=== PATIENT | female | born 1945 | race Caucasian/White ===

== ENCOUNTER 2019-03-18 00:13 | Inpatient (IN) | payer BC, OTHER ==
[2019-03-18] MEDS ORDERED: NA CHLORIDE 0.9% 2,000 ML ONE (00:57)
[2019-03-18 01:04] LABS: Absolute Lymphocytes (CBC) 1.8 K/uL (0.7-4.9); Basophils % 0.4 % (0-1.3); Hematocrit 41.8 % (36.0-45.0); Lymphocytes % 22.9 % (15.3-44.8); RBC Red Blood Cell Count 4.56 M/uL (3.86-4.86)
[2019-03-18] MEDS ORDERED: IPRATROPIUM BROM 0.5MG/2.5ML ONE (01:06)
[2019-03-18] MEDS ORDERED: ALBUTEROL 2.5 MG/3 ML NEB SOL ONE (01:07)
[2019-03-18 01:08] LABS: Protime INR 1.05
[2019-03-18 01:19] LABS: Arterial Blood Carboxyhemoglob 0.5 % (0-1.5); Blood Gas Oxyhemoglobin 97.3 % (94-97); Blood O2 Saturation 98.8 % (92-98.5)
[2019-03-18 01:24] LABS: ALT/SGPT 21 U/L (12-78); AST/SGOT 22 U/L (15-37); Alkaline Phosphatase 74 U/L (45-117); Amylase Level 46 U/L (25-115); BUN Blood Urea Nitrogen 17 mg/dL (7-18); Bicarbonate 25 mmol/L (21-32); Bilirubin Direct < 0.1 mg/dL (0-0.2); Bilirubin Total 0.3 mg/dL (0.2-1.0); CKMB Creatine Kinase MB 1.3 ng/mL (0.3-3.6); Creatine Phosphokinase 102 U/L (26-192); Glucose Level 130 mg/dL (74-106); Lipase 148 U/L (73-393); Potassium 3.6 mmol/L (3.5-5.1); Protein, Total 6.8 g/dL (6.4-8.2); Sodium Level 140 mmol/L (136-145); Troponin (Emerg Dept Use Only) < 0.02 ng/mL (0.0-0.045)
[2019-03-18] MEDS ORDERED: OSELTAMIVIR 75 MG CAP ONE (01:32)
[2019-03-18] MEDS ORDERED: PIPER/TAZO/NS 3.375gm 3.375 GM/100 ML BAG ONE (01:33)
--- NOTE | 2019-03-18 03:48 | ER ---
Nurse's Notes [facility] Name: Sherman Cook Age: 73 yrs Sex: Female : 1945 Arrival Date: 03/18/2019 Time: 00:16 Bed 4 Private MD: Aquiles Gracia V Diagnosis: Acute dyspnea. Hypotension. COPD exacerbation. Influenza A. Strep pharyngitis Presentation: 03/18 00:25 Presenting complaint: Patient states: 2 days ago feels getting sick,, cough and rr5 colds, Fever, and dizziness. 00:25 Transition of care: patient was not received from another setting of care. Onset of rr5 symptoms was March 16, 2019. Risk Assessment: Do you want to hurt yourself or someone else? Patient reports no desire to harm self or others. Initial Sepsis Screen: Does the patient meet any 2 criteria? RR > 20 per min. HR > 90 bpm. Yes Does the patient have a suspected source of infection? Yes: Productive cough/pneumonia. Care prior to arrival: None. Medication(s) given: inhaler. 00:25 Method Of Arrival: Wheelchair rr5 00:25 Acuity: TAYE 3 rr5 Triage Assessment: 00:25 Respiratory: the patient has mild shortness of breath. rr5 Historical: - Allergies: 00:44 PENICILLINS; rr5 00:44 Codeine; rr5 - Home Meds: 00:25 Unable to obtain [Active]; rr5 - PMHx: 00:25 COPD; Bronchitis; Arthritis; rr5 - PSHx: 00:25 Unable to obtain; rr5 - Immunization history:: Adult Immunizations up to date. - Coronavirus screen:: The patient has NOT traveled to [place], [place], or [place] in the past 14 days. - Social history:: Smoking status: Patient denies any tobacco usage or history of. Patient/guardian denies using alcohol, street drugs. - Ebola Screening: : Patient negative for fever greater than or equal to 101.5 degrees Fahrenheit, and additional compatible Ebola Virus Disease symptoms Patient denies exposure to infectious person Patient denies travel to an Ebola-affected area in the 21 days before illness onset. Screenin:32 Abuse screen: Denies threats or abuse. Denies injuries from another. Nutritional rr5 screening: No deficits noted. Tuberculosis screening: No symptoms or risk factors identified. Fall Risk IV access (20 points). Gait- Weak (10 pts.). Mental Status- Oriented to own ability (0 pts). Assessment: 00:25 General: Appears uncomfortable, ill, Behavior is calm, cooperative, appropriate for rr5 age, Reports fever for feeling ill for 1-2 days. Pain: Complains of pain in back and chest Pain does not radiate. Pain currently is 5 out of 10 on a pain scale. Quality of pain is described as aching, Pain began gradually, Is intermittent. Neuro: Level of Consciousness is awake, alert, obeys commands, Oriented to person, place, time, situation, Appropriate for age. Cardiovascular: Capillary refill < 3 seconds Patient's skin is warm and dry. Rhythm is sinus tachycardia. Respiratory: Reports shortness of breath cough that is colds Airway is patent Respiratory effort is labored, Respiratory pattern is symmetrical, tachypnea Breath sounds are clear. GI: Patient currently denies diarrhea, nausea, vomiting. : No signs and/or symptoms were reported regarding the genitourinary system. EENT: No signs and/or symptoms were reported regarding the EENT system. Derm: Skin is intact, is healthy with good turgor, Skin temperature is warm. Musculoskeletal: Circulation, motion, and sensation intact. Capillary refill < 3 seconds. 01:30 Reassessment: Patient appears in no apparent distress at this time. Patient is alert, rr5 oriented x 3, equal unlabored respirations, skin warm/dry/pink. lactate of 1.9,positive flu A and strep, ED provider aware with order made to change the fluid rate to 125ml/hr and antibiotic. Patient states feeling better. Patient states symptoms have improved. 02:30 Reassessment: Patient appears in no apparent distress at this time. Patient is alert, rr5 oriented x 3, equal unlabored respirations, skin warm/dry/pink. awaiting for CT chest angio Patient states feeling better. Patient states symptoms have improved. 03:30 Reassessment: Patient appears in no apparent distress at this time. Patient is alert, rr5 oriented x 3, equal unlabored respirations, skin warm/dry/pink. awaiting for result of CT angio, no complaints made. 04:00 Reassessment: Patient appears in no apparent distress at this time. Patient is alert, rr5 oriented x 3, equal unlabored respirations, skin warm/dry/pink. resting eyes closed breathing spontaneously with oxygen at 1 liter via nasal cannula. 04:50 Reassessment: Patient appears in no apparent distress at this time. Patient is alert, rr5 oriented x 3, equal unlabored respirations, skin warm/dry/pink. for transfer to room 417, vitally stable, denies any or SOB Patient states symptoms have improved. Vital Signs: 00:25 BP 97 / 49; Pulse 122; Resp 31; Pulse Ox 98% ; Weight 68.04 kg; Height 5 ft. 2 in. rr5 (157.48 cm); Pain 5/10; 00:27 Temp 99.3; Pulse Ox 94% on 2 lpm NC; rr5 00:45 BP 114 / 79; Pulse 115; Resp 24; Pulse Ox 99% on 2 lpm NC; rr5 01:44 BP 119 / 60; Pulse 115; Resp 22; Pulse Ox 98% on 1 lpm NC; rr5 02:28 BP 110 / 50; Pulse 110; Resp 23; Pulse Ox 97% on 1 lpm NC; rr5 03:17 BP 115 / 43; Pulse 109; Resp 21; Temp 99; Pulse Ox 99% on 1 lpm NC; Pain 5/10; rr5 04:10 BP 107 / 47; Pulse 96; Resp 22; Pulse Ox 95% on 1 lpm NC; rr5 04:56 BP 111 / 52; Pulse 105; Resp 20; Temp 98.4; Pulse Ox 95% on 1 lpm NC; rr5 00:25 Body Mass Index 27.44 (68.04 kg, 157.48 cm) rr5 00:27 hooked to oxygen rr5 Anastacia Coma Score: 00:25 Eye Response: spontaneous(4). Verbal Response: oriented(5). Motor Response: obeys rr5 commands(6). Total: 15. ED Course: 00:16 Patient arrived in ED. es 00:17 Aquiles Gracia MD is Private Physician. es 00:17 Robert Bateman MD is Attending Physician. pkl 00:27 Nghia Murillo, SUSANA is Primary Nurse. rr5 00:30 Triage completed. rr5 00:31 Arm band placed on. rr5 00:31 Patient has correct armband on for positive identification. Placed in gown. Bed in low rr5 position. Call light in reach. Side rails up X2. patient monitor on. Pulse ox on. NIBP on. 01:00 Inserted saline lock: 20 gauge in left antecubital area, using aseptic technique. Blood oe collected. 01:16 Chest Single View XRAY In Process Unspecified. EDMS 03:20 CT Chest For PE Angio In Process Unspecified. EDMS 03:45 Aquiles Gracia MD is Hospitalizing Provider. pkl 04:45 No provider procedures requiring assistance completed. Patient admitted, IV remains in rr5 place. intact, No redness/swelling at site. Administered Medications: 01:03 Drug: NS 0.9% (30 ml/kg) 30 ml/kg Route: IV; Rate: bolus; Site: left antecubital; rr5 01:57 Follow up: Rate change 125 ml/hr; ordered to regulate to 125 ml/hr rr5 05:00 Follow up: Response: No adverse reaction; IV Status: Infusion continued upon admission; rr5 IV Intake: 1000ml ; rate of 125 ml/hr 01:08 Drug: Albuterol - atroVENT (3:1) (2.5 mg - 0.5 mg) 3 ml Route: Nebulizer; rr5 02:10 Follow up: Response: No adverse reaction; Marked relief of symptoms rr5 01:38 Dru.375 grams of (Zosyn 3.375 grams, NS 0.9% 100 ml) Route: IVPB; Infused Over: 60 rr5 mins; Site: left antecubital; 02:35 Follow up: Response: No adverse reaction; IV Status: Completed infusion; IV Intake: rr5 100ml 01:38 Drug: Tamiflu 75 mg Route: PO; rr5 02:45 Follow up: Response: No adverse reaction rr5 Intake: 02:35 IV: 100ml; Total: 100ml. rr5 05:00 IV: 1000ml; Total: 1100ml. rr5 Outcome: 03:47 Decision to Hospitalize by Provider. pkl 04:45 Admitted to Tele accompanied by tech, via stretcher, room 417, with oxygen, with chart, rr5 Report called to ирина 04:45 Condition: stable 04:45 Instructed on the need for admit. 05:16 Patient left the ED. ea Signatures: Dispatcher [employer] Robert Loera MD MD pkFatuma Albarado Orlando oe Antunez, Elena, RN RN Nghia Hooker RN RN rr5 Corrections: (The following items were deleted from the chart) 00:44 00:25 Allergies: No Known Allergies; rr5 rr5 00:47 00:25 Initial Sepsis Screen: Does the patient meet any 2 criteria? RR > 20 per min. HR rr5 > 90 bpm. Yes Does the patient have a suspected source of infection? No. Patient's initial sepsis screen is negative. rr5 03:18 03:17 BP 115 / 43; Pulse 109bpm; Resp 21bpm; Pulse Ox 99%; Temp 99F; Pain 5/10; rr5 rr5
--- NOTE | 2019-03-18 03:48 | EDPHYS ---
Physician Documentation [facility] Name: Sherman Cook Age: 73 yrs Sex: Female : 1945 Arrival Date: 03/18/2019 Time: 00:16 Bed 4 Private MD: Aquiles Gracia V ED Physician Robert Bateman HPI: 03/18 00:46 This 73 yrs old Female presents to ER via Wheelchair with complaints of pkl Breathing Difficulty. 00:46 The patient has shortness of breath at rest. Onset: The symptoms/episode began/occurred pkl 2 day(s) ago. Associated signs and symptoms: Pertinent positives: chest pain, productive cough, dizziness, fever. Historical: - Allergies: 00:44 PENICILLINS; rr5 00:44 Codeine; rr5 - Home Meds: 00:25 Unable to obtain [Active]; rr5 - PMHx: 00:25 COPD; Bronchitis; Arthritis; rr5 - PSHx: 00:25 Unable to obtain; rr5 - Immunization history:: Adult Immunizations up to date. - Coronavirus screen:: The patient has NOT traveled to [place], [place], or [place] in the past 14 days. - Social history:: Smoking status: Patient denies any tobacco usage or history of. Patient/guardian denies using alcohol, street drugs. - Ebola Screening: : Patient negative for fever greater than or equal to 101.5 degrees Fahrenheit, and additional compatible Ebola Virus Disease symptoms Patient denies exposure to infectious person Patient denies travel to an Ebola-affected area in the 21 days before illness onset. ROS: 00:46 Eyes: Negative for injury, pain, redness, and discharge, ENT: Negative for injury, pkl pain, and discharge, Neck: Negative for injury, pain, and swelling. 00:46 Cardiovascular: Positive for chest pain, with cough. 00:46 Respiratory: Positive for cough, with yellow sputum, shortness of breath. 00:46 Abdomen/GI: Negative for abdominal pain, nausea, vomiting, and diarrhea. 00:46 Back: Negative for acute changes. 00:46 : Negative for urinary symptoms. 00:46 MS/extremity: Negative for acute changes. 00:46 Skin: Negative for rash. 00:46 Neuro: Negative for altered mental status. Exam: 00:46 Head/Face: Normocephalic, atraumatic. Eyes: Pupils equal round and reactive to light, pkl extra-ocular motions intact. Lids and lashes normal. Conjunctiva and sclera are non-icteric and not injected. Cornea within normal limits. Periorbital areas with no swelling, redness, or edema. ENT: Nares patent. No nasal discharge, no septal abnormalities noted. Tympanic membranes are normal and external auditory canals are clear. Oropharynx with no redness, swelling, or masses, exudates, or evidence of obstruction, uvula midline. Mucous membranes moist. Neck: Trachea midline, no thyromegaly or masses palpated, and no cervical lymphadenopathy. Supple, full range of motion without nuchal rigidity, or vertebral point tenderness. No Meningismus. Chest/axilla: Normal chest wall appearance and motion. Nontender with no deformity. No lesions are appreciated. 00:46 Cardiovascular: Rate: tachycardic, actual rate is 115 bpm, Rhythm: regular. 00:46 ECG was reviewed by the Attending Physician. 00:46 Respiratory: mild respiratory distress is noted, Respirations: labored breathing, that is mild, Breath sounds: rales, that are mild, are scattered. 00:46 Abdomen/GI: Bowel sounds: normal, Palpation: abdomen is soft and non-tender, in all quadrants. 00:46 Back: Exam negative for acute changes. 00:46 : Exam negative for acute changes. 00:46 Musculoskeletal/extremity: Exam is negative for acute changes. 00:46 Skin: Exam negative for rash. 00:46 Neuro: Orientation: is normal, Mentation: is normal, Cranial nerves: grossly normal, Motor: is normal. Vital Signs: 00:25 BP 97 / 49; Pulse 122; Resp 31; Pulse Ox 98% ; Weight 68.04 kg; Height 5 ft. 2 in. rr5 (157.48 cm); Pain 5/10; 00:27 Temp 99.3; Pulse Ox 94% on 2 lpm NC; rr5 00:45 BP 114 / 79; Pulse 115; Resp 24; Pulse Ox 99% on 2 lpm NC; rr5 01:44 BP 119 / 60; Pulse 115; Resp 22; Pulse Ox 98% on 1 lpm NC; rr5 02:28 BP 110 / 50; Pulse 110; Resp 23; Pulse Ox 97% on 1 lpm NC; rr5 03:17 BP 115 / 43; Pulse 109; Resp 21; Temp 99; Pulse Ox 99% on 1 lpm NC; Pain 5/10; rr5 04:10 BP 107 / 47; Pulse 96; Resp 22; Pulse Ox 95% on 1 lpm NC; rr5 04:56 BP 111 / 52; Pulse 105; Resp 20; Temp 98.4; Pulse Ox 95% on 1 lpm NC; rr5 00:25 Body Mass Index 27.44 (68.04 kg, 157.48 cm) rr5 00:27 hooked to oxygen rr5 Anastacia Coma Score: 00:25 Eye Response: spontaneous(4). Verbal Response: oriented(5). Motor Response: obeys rr5 commands(6). Total: 15. MDM: 00:17 Patient medically screened. pkl 01:41 Data reviewed: vital signs, nurses notes, lab test result(s), EKG, radiologic studies, pkl CT scan, plain films. ED course: D-Dimer ( 1294 ) CT PE Chest Angio ordered. 03/18 00:46 Order name: Amylase, Serum; Complete Time: pkl 03/18 00:46 Order name: Basic Metabolic Panel; Complete Time: pkl 03/18 00:46 Order name: Blood Culture Adult (2) pkl 03/18 00:46 Order name: CBC with Diff; Complete Time: pkl 03/18 00:46 Order name: Ckmb; Complete Time: : pkl 03/18 00:46 Order name: CPK; Complete Time: : pkl 03/18 00:46 Order name: Lactate; Complete Time: pkl 03/18 00:46 Order name: LFT's; Complete Time: : pkl 03/18 00:46 Order name: Lipase; Complete Time: : pkl 03/18 00:46 Order name: Procalcitonin; Complete Time: 01:38 pkl 03/18 00:46 Order name: Protime (+inr); Complete Time: : pkl 03/18 00:46 Order name: Ptt, Activated; Complete Time: pkl 03/18 00:46 Order name: Troponin (emerg Dept Use Only); Complete Time: : pkl 03/18 00:46 Order name: Urine Microscopic Only pkl 03/18 00:46 Order name: Chest Single View XRAY pkl 03/18 00:46 Order name: Accucheck; Complete Time: 01:10 pkl 03/18 00:46 Order name: Cardiac monitoring; Complete Time: 01:10 pkl 03/18 00:46 Order name: EKG - Nurse/Tech; Complete Time: 01:10 pkl 03/18 00:46 Order name: IV Saline Lock - Large Bore; Complete Time: 01:13 pkl 03/18 00:46 Order name: Labs collected and sent; Complete Time: 01:13 pkl 03/18 00:46 Order name: ABG; Complete Time: 01:26 pkl 03/18 00:51 Order name: Flu; Complete Time: :26 pkl 03/18 00:51 Order name: Strep; Complete Time: 01:26 pkl 03/18 01:04 Order name: Glucose, Ancillary Testing; Complete Time: 01:06 EDMS 03/18 01:17 Order name: D-Dimer; Complete Time: 01:41 pkl 03/18 01:40 Order name: CT Chest For PE Angio pkl 03/18 00:46 Order name: O2 Per Protocol; Complete Time: 01:13 pkl 03/18 00:46 Order name: O2 Sat Monitoring; Complete Time: 01:13 pkl Administered Medications: 01:03 Drug: NS 0.9% (30 ml/kg) 30 ml/kg Route: IV; Rate: bolus; Site: left antecubital; rr5 01:57 Follow up: Rate change 125 ml/hr; ordered to regulate to 125 ml/hr rr5 05:00 Follow up: Response: No adverse reaction; IV Status: Infusion continued upon admission; rr5 IV Intake: 1000ml ; rate of 125 ml/hr 01:08 Drug: Albuterol - atroVENT (3:1) (2.5 mg - 0.5 mg) 3 ml Route: Nebulizer; rr5 02:10 Follow up: Response: No adverse reaction; Marked relief of symptoms rr5 01:38 Dru.375 grams of (Zosyn 3.375 grams, NS 0.9% 100 ml) Route: IVPB; Infused Over: 60 rr5 mins; Site: left antecubital; 02:35 Follow up: Response: No adverse reaction; IV Status: Completed infusion; IV Intake: rr5 100ml 01:38 Drug: Tamiflu 75 mg Route: PO; rr5 02:45 Follow up: Response: No adverse reaction rr5 Disposition: 03/18/19 03:47 Hospitalization ordered by Aquiles Gracia for Inpatient Admission. Preliminary diagnosis is Acute dyspnea. Hypotension. COPD exacerbation. Influenza A. Strep pharyngitis. - Bed requested for Telemetry/MedSurg (Inpatient). - Status is Inpatient Admission. ea - Condition is Stable. - Problem is new. - Symptoms are unchanged. UTI on Admission? No Signatures: Dispatcher [employer] EDMS Anitra Zaragoza RN RN mw Lam, Pin, MD MD pkl Miladis Leach RN RN ea Roque, Raymond RN RN rr5 Corrections: (The following items were deleted from the chart) 00:44 00:25 Allergies: No Known Allergies; rr5 rr5 04:15 03:47 Hospitalization Ordered by Aquiles Gracia MD for Inpatient Admission. Preliminary diagnosis is Acute dyspnea. Hypotension. COPD exacerbation. Influenza A. Strep pharyngitis. Bed requested for Telemetry/MedSurg (Inpatient). Status is Inpatient Admission. Condition is Stable. Problem is new. Symptoms are unchanged. UTI on Admission? No. pkl 05:16 04:15 03/18/2019 03:47 Hospitalization Ordered by Aquiles Gracia MD for Inpatient ea Admission. Preliminary diagnosis is Acute dyspnea. Hypotension. COPD exacerbation. Influenza A. Strep pharyngitis. Bed requested for Telemetry/MedSurg (Inpatient). Status is Inpatient Admission. Condition is Stable. Problem is new. Symptoms are unchanged. UTI on Admission? No. mw
[2019-03-18] MEDS ORDERED: IPRATROPIUM BROM 0.5MG/2.5ML NEB PRN (03:53)
[2019-03-18] MEDS ORDERED: ALBUTEROL 2.5 MG/3 ML NEB SOL NEB PRN (03:53)
[2019-03-18 06:47] VITALS: BMI 27.7
[2019-03-18] MEDS: CEFTRIAXONE/SWI 1gm 1 GM/10 ML SYR IV SCH ×2 (08:08→21:22)
[2019-03-18] MEDS: METHYLPREDNISOLONE 40 MG INJ IV SCH ×2 (08:09→16:34)
[2019-03-18] MEDS: ASPIRIN EC 81 MG TAB PO SCH (08:09)
--- NOTE | 2019-03-18 08:11 | RAD REPORT ---
EXAM DESCRIPTION: RAD - Chest Single View - 03/18/2019 1:11 am CLINICAL HISTORY: Cough;Fever COMPARISON: Chest Pa And Lat (2 Views) dated 09/07/2015; CHEST PA AND LAT 2 VIEW dated 03/19/2012 TECHNIQUE: AP portable chest image was obtained 03/18/2019 1:11 am . FINDINGS: No focal lung parenchymal process. No failure or volume overload. Interstitial pattern mat ches comparison. Focal density medial right lung base is probably pericardial fat. This has unchanged from 2012. Heart and vasculature are normal. No measurable pleural effusion and no pneumothorax. No acute bony abnormality seen. No acute aortic findings suspected. IMPRESSION: No acute cardiopulmonary process.
--- NOTE | 2019-03-18 08:46 | EKG ---
Test Date: 2019-03-18 Test Time: 00:40:28 Naval Architect Specialist: RR MEASUREMENT RESULTS: Intervals: Rate: 115 CO: 122 QRSD: 70 QT: 294 QTc: 406 [place]: P: 69 CO: 122 QRS: 52 T: 212 INTERPRETIVE STATEMENTS: Sinus tachycardia ST & T wave abnormality, consider inferolateral ischemia Abnormal ECG Compared to ECG 09/07/2015 13:48:03 Sinus rhythm no longer present ST (T wave) deviation still present Possible ischemia still present Electronically Signed On 03-18-19 08:45:28 SHIPPING HELPER by Brock Ortiz
[2019-03-18] MEDS ORDERED: OSELTAMIVIR 75 MG CAP PO SCH (09:00)
--- NOTE | 2019-03-18 10:57 | RAD REPORT ---
EXAM DESCRIPTION: CT - Chest For Pe Angio - 03/18/2019 8:40 am CLINICAL HISTORY: The patient is 73 years old and is Female; Cough;Fever;Dyspnea TECHNIQUE: Axial computed tomographic angiography images of the chest with intravenous contrast. S agittal and coronal reformatted images were created and reviewed. This CT exam was performed using one or more of the following dose reduction techniques: automated exposure control, adjustment of t he mA and/or kV according to patient size, and/or use of iterative reconstruction technique. MIP reconstructed images were created and reviewed. COMPARISON: No relevant prior studies available. FINDINGS: ARTIFACTS: The exam is suboptimal secondary to motion artifact. PULMONARY ARTERIES: The timing of contrast is suboptimal to evaluate for pulmonary thromboemboli sm. AORTA: No acute findings. No thoracic aortic aneurysm. LUNGS: Minimal bilateral centrilobular emphysematous change of the lungs is present. A 0.[address] eural-based right upper lobe pulmonary nodule is present. PLEURAL SPACE: Unremarkable. No significant effusion. No pneumothorax. HEART: Unremarkable. No cardiomegaly. No significant pericardial effusion. No evidence of RV dysfunction. MEDIASTINUM: A small hiatal hernia is present. BONES/JOINTS: Minimal degenerative change of the bones is present. No acute fracture. No dis location. SOFT TISSUES: Unremarkable. LYMPH NODES: Unremarkable. No enlarged lymph nodes. IMPRESSION: 1. The timing of contrast is suboptimal to evaluate for pulmonary thromboembolism. 2. No lobar consolidation or effusion. 3. Right upper lobe pulmonary nodule. Recommend a non-contrast Chest CT at 6-12 months, then another non-contrast Chest CT at 18-24 months. These guidelines do not apply to immunocompromised patients and patients with cancer. Follow up in pa tients with significant comorbidities as clinically warranted. For lung cancer screening, adhere to L kwabena-RADS guidelines. Reference: Radiology. 2017; 284(1):228-43. Electronically signed by: Magalie Gamboa MD 03/18/2019 3:31 AM ICT HELP DESK TECHNICIAN Due to temporary technical issues with the PACS/Fluency reporting system, reports are being signed by the in house radiologist as a courtesy to ensure prompt reporting. The interpreting radiologist is f ully responsible for the content of the report.
[2019-03-18 16:20] LABS: Urine Bacteria <20 /HPF (<20); Urine Culture Reflex Order NOT NEEDED; Urine RBC <5 /HPF (NONE SEEN)
--- NOTE | 2019-03-18 18:10 | P.HP ---
Certification for Inpatient Patient admitted to: Inpatient With expected LOS: >2 Midnights Practitioner: I am a practitioner with admitting privileges, knowledge of patient current condition, hospital course, and medical plan of care. Services: Services provided to patient in accordance with Admission requirements found in Title 42 Section 412.3 of the Code of Federal Regulations Patient History Date of Service: 03/18/19 Reason for admission: DYSPNEA, COUGH, LOW BP. History of Present Illness: MS. ESTEVEZ HAS COPD AND COMES WITH FEVER, COUGH, SORE THROAT FOUND TO HAVE POSITIVE FLU AND POSITVE STREP THROAT. SHE HAD LOW BP ON ADMISSION DOWN TO 90 SYSTOLIC. SHE IS BETTER AFTER HYDRATION BOLUS IN ER. Allergies Penicillins Allergy (Mild, Verified 01/16/12 12:32) Rash codeine [Codeine] Adverse Reaction (Intermediate, Verified 01/16/12 12:32) vomitting Home Medications: Cyclosporine [Restasis] 1 each OP DAILY 09/07/15 Duloxetine HCl [Cymbalta] 60 mg PO DAILY 09/07/15 Leflunomide [Arava] 10 mg PO DAILY 09/07/15 Fluticasone/Umeclidin/Vilanter [Trelegy Ellipta 100-62.5-25] 1 puff IH DAILY 05/02 Ipratrop/Albuterol Inhaler [Combivent*] 2 puff IH BID PRN 03/18/19 - Past Medical/Surgical History Has patient received pneumonia vaccine in the past: Yes Diabetic: No -: PNEUMONIA -: BRONCHITIS -: COPD -: RA -: CATARACT SX BILATERAL EYES - Social History Smoking Status: Never smoker Alcohol use: No CD- Drugs: No Caffeine use: Yes Place of Residence: Home Review of Systems 10-point ROS is otherwise unremarkable General: Weakness, Malaise Respiratory: Cough Physical Examination - Vital Signs Temperature: 97.3 F Blood Pressure: 140/57 Pulse: 86 Respirations: 16 Pulse Ox (%): 97 - Physical Exam General: Alert, Moderate distress HEENT: Atraumatic, PERRLA, Mucous membr. moist/pink, EOMI, Sclerae nonicteric Neck: Supple, 2+ carotid pulse no bruit, No LAD, Without JVD or thyroid abnormality Respiratory: Diminished, Rhonchi/gurgles Cardiovascular: Regular rate/rhythm, Normal S1 S2 Gastrointestinal: Normal bowel sounds, No tenderness Musculoskeletal: No tenderness Integumentary: No rashes Neurological: Normal gait, Normal speech, Normal strength at 5/5 x4 extr, Normal tone, Normal affect Lymphatics: No axilla or inguinal lymphadenopathy - Studies Laboratory Data (last 24 hrs) 03/18/19 00:45: PT 12.4, INR 1.05, APTT 34.2 03/18/19 00:45: WBC 7.9, Hgb 13.8, Hct 41.8, Plt Count 223 03/18/19 00:45: Sodium 140, Potassium 3.6, BUN 17, Creatinine 1.10, Glucose 130 H, Total Bilirubin 0.3, AST 22, ALT 21, Alkaline Phosphatase 74, Amylase 46, Lipase 148 Microbiology Data (last 24 hrs): 03/18/19 01:00 Throat Group A Streptococcus Rapid Screen - Final 03/18/19 01:00 Nasopharnyx Influenza Type A Antigen Screen - Final 03/18/19 01:00 Nasopharnyx Influenza Type B Antigen Screen - Final Assessment and Plan - Problems (Diagnosis) (1) Decompensated chronic obstructive pulmonary disease with exacerbation Onset Date: 09/08/15 Current Visit: No Status: Acute Plan: IV STEROIDS, NEBS, ABX. SHOULD IMPROVE. SHE WILL BE ON TAMILFU DOSE ADJUSTED BY PHARMACIST AND ROCEPHIN IV. - Advance Directives Does patient have a Living Will: No Does patient have a Durable POA for Healthcare: No
[2019-03-18] MEDS ORDERED: PNEUMOCOCCAL VACCINE 0.5 ML IMVAC ONE (21:00)
[2019-03-18] MEDS ORDERED: INFLUENZA VACCINE (for 3y+) 0.5 ML DOSE IMVAC ONE (21:00)
[2019-03-18] MEDS ORDERED: OSELTAMIVIR PHOSPHATE 30 MG/5 ML SUSPENSION UD ONE (21:15)
[2019-03-18] MEDS: OSELTAMIVIR PHOSPHATE 30 MG/5 ML SUSPENSION UD PO SCH (21:22)
[2019-03-19] MEDS: METHYLPREDNISOLONE 40 MG INJ IV SCH ×3 (00:33→16:17)
[2019-03-19 05:59] LABS: Absolute Lymphocytes (CBC) 0.9 K/uL (0.7-4.9); RBC Red Blood Cell Count 3.98 M/uL (3.86-4.86)
[2019-03-19] MEDS: ASPIRIN EC 81 MG TAB PO SCH (08:30)
[2019-03-19] MEDS: OSELTAMIVIR PHOSPHATE 30 MG/5 ML SUSPENSION UD PO SCH ×2 (08:30→20:51)
[2019-03-19] MEDS: CEFTRIAXONE/SWI 1gm 1 GM/10 ML SYR IV SCH ×2 (08:30→20:51)
[2019-03-19] MEDS: DULOXETINE 30 MG CAP PO SCH (08:30)
[2019-03-19] MEDS: HOME MED 1 EA UNK (Fluticasone/Umeclidin/Vilanter [Trelegy Ellipta 100-62.5-25] 1 PUFF) IH SCH (08:31)
[2019-03-19] MEDS ORDERED: HOME MED 1 EA UNK (Cyclosporine [Restasis] 1 EACH) OP SCH (09:00)
[2019-03-19] MEDS ORDERED: HOME MED 1 EA UNK (Duloxetine Hcl [Cymbalta] 60 MG) PO SCH (09:00)
[2019-03-19] MEDS ORDERED: LEFLUNOMIDE 10 MG PO SCH (09:00)
[2019-03-19] MEDS ORDERED: IPRATROPIUM BROM 0.5MG/2.5ML NEB PRN (14:00)
[2019-03-19] MEDS ORDERED: ALBUTEROL 2.5 MG/3 ML NEB SOL NEB PRN (14:00)
--- NOTE | 2019-03-19 22:34 | PN ---
Subjective: Sherman is doing lot better. Breathing is improving. Denies chest pain, nausea, vomiting. Objective: Vital Signs: On physical examination, blood pressure 149/81, temperature 97.2. HEENT: No JVD. No carotid bruits. Heart: Regular. Chest: Actually has decreased breath sounds bilateral ly. Investigations: Patient has 2 blood cultures positive, but 1 is anaerobic, other 1 is aerobic gram-p ositive cocci. I suspect this could be contamination of the sample collection process, might be infl uenced by poor sample collection. We will follow up on this until final result is ready tomorrow. Assessment/plan: Chronic obstructive pulmonary disease exacerbation strep positive. Continue antibi otic Rocephin; probably Tamiflu, the dose adjusted by pharmacist, down to 30 mg twice a day, but now the creatinine is down to 0.88 and dose might be able to be improved back to normal level. Pharmacy is going to take care of this. MARQUES/ROGE Voice ID: [id number] Report ID: [id number]
[2019-03-20] MEDS: METHYLPREDNISOLONE 40 MG INJ IV SCH ×2 (00:09→08:43)
[2019-03-20] MEDS: CEFTRIAXONE/SWI 1gm 1 GM/10 ML SYR IV SCH (08:43)
[2019-03-20] MEDS: ASPIRIN EC 81 MG TAB PO SCH (08:44)
[2019-03-20] MEDS: DULOXETINE 30 MG CAP PO SCH (08:44)
[2019-03-20] MEDS: HOME MED 1 EA UNK (Fluticasone/Umeclidin/Vilanter [Trelegy Ellipta 100-62.5-25] 1 PUFF) IH SCH (08:44)
[2019-03-20] MEDS: OSELTAMIVIR PHOSPHATE 30 MG/5 ML SUSPENSION UD PO SCH (08:44)
[2019-03-20 08:58] VITALS: O2SAT 95
[2019-03-20] MEDS ORDERED: ENOXAPARIN 40 MG/0.4 ML SQ SCH (09:00)
[2019-03-20 12:40] VITALS: BP 142/62; TEMP 97.7
--- NOTE | 2019-03-21 04:40 | DS ---
Date of Discharge: 03/20/2019 Final Diagnoses: chronic obstructive pulmonary disease exacerbation, streptococcus infection, flu in fection which is influenza infection. Hospital Course: Patient is a 73-year-old with severe COPD, comes in with shortness of breath, impro rayshawn on IV steroids, was found to have strep throat at the same time flu infection for which she was g iven Tamiflu dose adjusted by pharmacist and Rocephin IV. She did really well in the couple days. S he was discharged home on Zithromax, Z-Nathaniel, and Tamiflu. So far, patient has 2 blood cultures which are positive, but I believe they are false positive as 1 bacteria is anaerobic and the other one is a erobic and that is quite unusual for any kind of positivity of blood culture. Clinically she has imp roved, so I feel comfortable discharging her and following up on the blood cultures as described alfred morales. Most likely will not have to intervene in any ways for this particular dilemma. RAFIQD/MODL Voice ID: [id number] Report ID: [id number]
== END 2019-03-20 14:56 | disposition home or self-care (01) | DRG 192 ==
LOC: ER 00:13 → ERHOLD 03:49 → 4TH 04:47
PROVIDERS: ADMIT Internal Medicine; ATTEND Internal Medicine
DX: J44.1 Chronic obstructive pulmonary disease with (acute) exacerbation (principal); J11.1 Influenza due to unidentified influenza virus with other respiratory manifestations; J02.0 Streptococcal pharyngitis; B95.0 Streptococcus, group A, as the cause of diseases classified elsewhere; Z88.0 Allergy status to penicillin
CPT/HCPCS: 36415; 71045; 71275; 80048; 80076; 81015; 82150; 82550; 82553; 82805; 82947; 83605; 83690; 83880; 84145; 84484; 85025; 85049; 85379; 85610; 85730; 87040; 87077; 87081; 87186; 87205; 87804; 93005; 94640; 94760; 96361; 96365; 96366; 99285; J0696; J1650; J2543; J2920; J7030; Q9967

== ENCOUNTER 2020-08-12 01:26 | Observation (INO) | payer BC, OTHER, SELFPAY ==
--- OUTSIDE RECORDS SUMMARY | 2020-08-12 01:29 | XMS REPORT | Continuity of Care Document ---
:[address] [facility] t Address [address] [place] [address] Care Team Providers Name Role Phone Basil ARANDA Primary Care Physician Arya ARANDA, Y.H. Attending Clinician Amber ARANDA Attending Clinician Brandon Woods DO Attending Clinician Rosanne VILLALOBOS, Poly Attending Clinician MD ARYA Y.H. Attending Clinician Unavailable Provider Attending Clinician Radiology Attending Clinician Unavailable ARYA Admitting Clinician Unavailable MD ARYA Y.H. Admitting Clinician Unavailable Payers Payer Name Policy Type Policy Effective Date Expiration Date Sour ce Number UHC MEDICAREUHC [id number] 2020 [place] TRS/[employer] 00:00:00 Methodis t [id number] 2020-Present Problems Condition Condition Condition Status Onset Resolution Last Treating Co mments Source Name Details Category Date Date Treatment Clinician Date Right Right Disease Active Overview: [place] upper lobe upper lobe 5-27 Formattin Methodi pulmonary pulmonary 00:00: g of this s t nodule nodule 00 note might be different from the original. Added automatic ally from request for surgery [id number] Allergies, Adverse Reactions, Alerts Allergy Allergy Status Severity Reaction(s) Onset Inactive Treating Comm ents Source Name Type Date Date Clinician Codeine Propensi Active GI [place] ty to Intolerance 5-20 Metho di adverse 00:00: st reaction 00 s to drug Penicill Propensi Active Shortness Of [place] ins ty to Breath 5-20 Methodi adverse 00:00: st reaction 00 s to drug Social History Social Habit Start Date Stop Date Quantity Comments Source History of tobacco Current smoker Ramón hair use Sabianist Exposure to Not sure [place] SARS-CoV-2 (event) Method ist Cigarettes smoked 2020-07-23 2020-07-23 [place] current (pack per 00:00:00 00:00:[address] day) - Reported Cigarette 2020-07-23 2020-07-23 [place] pack-years 00:00:00 00:00:00 Sab[facility]ist Tobacco use and 2020-07-23 2020-07-23 Former user [place] exposure 00:00:00 00:00:00 Sab[facility] Alcohol intake 2020-07-23 2020-07-23 Current drinker of Ramón hair 00:00:00 00:00:00 alcohol (finding) [facility]i st Alcohol Comment 2020-07-02 2020-07-02 occasionally [place] 00:00:00 00:00:00 Sabianist Sex [birth year] [place] 00:00:00 00:00:00 Sabianist Smoking Status Start Date Stop Date Source Former smoker 2020-07-23 00:00:00 2020-07-23 00:00:00 [place] Sabianist Medications Ordered Filled Start Stop Current Ordering Indication Dosage Frequency Signature Comments Components Source Medication Medication Date Date Medication? Clinician (SIG) Name Name diclofen Yes [place] sod-capsai- 07-23 Methodi m-gayatri-ment 11:19: st 50 mg-0.025 08 %- 25 %-6 % kit, liquid and tablet del rel leflunomide Yes 20mg QD Take 20 mg Kamara (ARAVA) 20 6-10 by mouth Metho di MG tablet 11:19: daily. st 08 secukinumab Yes Inject [place] (Cosentyx 6-10 under the Metho di Pen, 2 11:19: skin. st Pens,) 150 08 mg/mL pen injector DULoxetine Yes 60mg QD Take 60 mg [place] (CYMBALTA) 6-10 by mouth Metho di 60 MG 11:19: daily. st capsule 08 fluticasone Yes Inhale. Oj ston /umeclidin/ 6-10 Methodi vilanter 11:19: st (TRELEGY 08 ELLIPTA INHL) omeprazole Yes Take by Jose watts magnesium 6-10 mouth. Method[facility] (PRILOSEC 11:19: st ORAL) 08 gabapentin 2020- Yes 300mg [id number] Take 1 Asad (NEURONTIN) 07-23 [id number] capsule Methodi 300 mg 00:00: 23:59 3D ([address] capsule 00 :00 total) by mouth 3 (three) times a day for 30 days. acetaminoph 2020- No 1000mg Q8H Take 2 [place] en 07-2315 tablets Methodi (TYLENOL) 00:00: 23:59 (1,[address] 500 MG 00 :00 total) by tablet mouth every 8 (eight) hours for 5 days. Vital Signs Vital Name Observation Time Observation Value Comments Source Systolic blood 2020-07-23 07:26:12 137 mm[Hg] Arin Garnett pressure Diastolic blood 2020-07-23 07:26:12 65 mm[Hg] Mone Garnett pressure Heart rate 2020-07-23 07:26:12 72 /min Asad Garnett Body temperature 2020-07-23 07:26:12 36.28 Faby Jose Garnett Respiratory rate 2020-07-23 07:26:12 17 /min Jose Garnett Oxygen saturation in 2020-07-23 07:26:12 93 /min Asad Garnett Arterial blood by Pulse oximetry Body weight 2020-07-23 05:42:00 65.3 kg Asad Garnett BMI 2020-07-23 05:42:00 26.33 kg/m2 Asad Garnett Body height 2020-07-21 06:14:00 157.5 cm Asad Garnett Procedures Procedure Date / Time Performing Clinician Source Performed CBC HEMOGRAM 2020-07-23 04:12:00 Caesar Morin Britt BASIC METABOLIC PANEL 2020-07-23 04:12:00 Caesar Morin MAGNESIUM LEVEL 2020-07-23 04:12:00 Elzein, Caesar Kamara Meth odist Britt PHOSPHORUS LEVEL 2020-07-23 04:12:00 Caesar Morin Met hodist Britt ESTIMATED GFR 2020-07-23 04:12:00 Brandan Koenig Me thodist XR CHEST 1 VW PORTABLE 2020-07-22 14:57:00 Amina Murdock on Sabianist XR CHEST 1 VW PORTABLE 2020-07-22 12:40:00 Amina Murdock on Sabianist XR CHEST 1 VW PORTABLE 2020-07-22 06:30:00 Vahe Manuelito Hue Garnett BASIC METABOLIC PANEL 2020-07-22 04:01:00 Vahe Hue Billings HC COMPLETE BLD COUNT 2020-07-22 04:01:00 Vahe Hue Billings W/AUTO DIFF MAGNESIUM LEVEL 2020-07-22 04:01:00 Vahe Hue Billinsg Me thodist PHOSPHORUS LEVEL 2020-07-22 04:01:00 Vahe Hue Billings M ethodist ESTIMATED GFR 2020-07-22 04:01:00 Brandan Koenig Me thodist XR CHEST 1 VW PORTABLE 2020-07-21 11:25:00 Vahe Billings Hue Garnett SURGICAL PATHOLOGY REQUEST 2020-07-21 09:58:00 Brandan Koenig ARTERIAL BLOOD GAS, 2020-07-21 09:43:00 Brandan Koenig CORRECTED SODIUM LEVEL, SYRINGE 2020-07-21 09:43:00 Brandan Koenig POTASSIUM, SYRINGE 2020-07-21 09:43:00 Brandan Koenig IONIZED CALCIUM, ARTERIAL 2020-07-21 09:43:00 Brandan Koenig HEMOGLOBIN, SYRINGE 2020-07-21 09:43:00 Brandan Koenig GLUCOSE LEVEL, SYRINGE 2020-07-21 09:43:00 Brandan Koenig ARTERIAL LINE 2020-07-21 09:06:54 Luis Woods ARTERIAL BLOOD GAS, 2020-07-21 08:22:00 Brandan Koenig CORRECTED SODIUM LEVEL, SYRINGE 2020-07-21 08:22:00 Brandan Koenig POTASSIUM, SYRINGE 2020-07-21 08:22:00 Brandan Koenig HEMOGLOBIN, SYRINGE 2020-07-21 08:22:00 Brandan Koenig IONIZED CALCIUM, ARTERIAL 2020-07-21 08:22:00 Brandan Koenig GLUCOSE LEVEL, SYRINGE 2020-07-21 08:22:00 Brandan Koenig KS AN ELECTIVE 2020-07-21 08:07:00 Luis Woods ENDOTRACHEAL AIRWAY THORACOSCOPY, 2020-07-21 07:53:00 Brandan Koenig Mn thodi ROBOT-ASSISTED BRONCHOSCOPY 2020-07-21 07:53:00 Brandan Koenig Mn thodist ABO AND RH CONFIRMATION 2020-07-21 06:30:00 Brandan Koenig COVID-19 QUALITATIVE 2020-07-16 10:19:00 Zuleima Lay RT-PCR PET CT SKULL BASE TO MID 2020-07-06 [facility] POC GLUCOSE 2020-07-06 12:53:00 Brandan Koenig Mn thodist SPIROMETRY PRE AND POST 2020-07-06 10:45:49 Brandan Koenig WITH BRONCHILATOR, DIFFUSION, LUNG VOLUMES TYPE AND SCREEN 2020-07-06 08:58:00 Brandan Koenig Mn thodist PROTHROMBIN TIME WITH INR 2020-07-06 08:58:00 Brandan Koenig PARTIAL THROMBOPLASTIN 2020-07-06 08:58:00 Brandan Koenig TIME (PTT) COMPREHENSIVE METABOLIC 2020-07-06 08:58:00 Brandan Koenig PANEL HC COMPLETE BLD COUNT 2020-07-06 08:58:00 Brandan Koenig W/AUTO DIFF ESTIMATED GFR 2020-07-06 08:58:00 [facility] 2020-07-06 08:58:00 Brandan Koenig on Sabianist RT-PCR CT CHEST WO CONTRAST 2020-07-06 08:45:[address] on [facility] [address] CHEST EXTERNAL STUDY 2020-06-01 14:43:[address] CHEST WO CONTRAST 2020-06-01 00:00:00 Provider, Historical Ramón Garnett Plan of Care Planned Activity Planned Date Details Comments Source Future Scheduled 2020-09-13 INFLUENZA VACCINE Arin plascencia Sabianist Test 00:00:00 [code = INFLUENZA VACCINE] Future Scheduled 1996 BREAST CANCER [facility] thodist Test 00:00:00 SCREENING [code = BREAST CANCER SCREENING] Future Scheduled 1996 COLONOSCOPY SCREENING Ramón freemanstefanie Sabianist Test 00:00:00 [code = COLONOSCOPY SCREENING] Future Scheduled 1996 SHINGLES VACCINES Joseto n Sabianist Test 00:00:00 (#1) [code = SHINGLES VACCINES (#1)] Future Scheduled 1963 Hepatitis C screening Ho stefanie Sabianist Test 00:00:00 (procedure) [code = 063405799] Encounters Start End Encounter Admission Attending Care Care Encounter Source Date/Time Date/Time Type Type Clinicians Facility Department ID 2020-07-21 2020-07-23 Inpatient [facility] 021 [id number] [place] 00:00:00 00:00:00 BRANDAN [address] 2020-07-16 2020-07-16 Outpatient [facility] [id number] [place] 00:00:00 00:00:00 BRANDAN [address] 2020-07-09 2020-07-09 Outpatient [facility] [id number] [place] 00:00:00 00:00:00 BRANDAN [address] 2020-07-06 2020-07-06 Outpatient KOENIG, [facility] [id number] [place] 00:00:00 00:00:00 EDWARD 002 Method i 2020-07-06 2020-07-06 Outpatient KOENIG, [facility] [id number] [place] 00:00:00 00:00:00 EDWARD 958 Method i 2020-07-06 2020-07-06 Outpatient KOENIG, [facility] [id number] [place] 00:00:00 00:00:00 EDWARD 418 Method i 2020-07-06 2020-07-06 Outpatient KOENIG, [facility] [id number] [place] 00:00:00 00:00:00 EDWARD 767 Method i 2020-07-02 2020-07-02 Outpatient KOENIG, [facility] [id number] [place] 00:00:00 00:00:00 EDWARD 533 Method i 2020-07-02 2020-07-02 Outpatient KOENIG, [facility] [id number] [place] 00:00:00 00:00:00 EDWARD 437 Method i 2020-05-22 2020-05-22 [facility] [id number] 09:45:00 23:59:00 Encounter Mereta [id number] [place] [id number] [place] [id number] Results Test Description Test Time Test Comments Results Result Comments Source Surgical pathology request 2020-08-03 16:03:36 Test Item Value Reference Range Interpretation Comme nts Case number (test code = [id number]) [id number] Surgical pathology report (test code = See link below for PDF Lab R eport 7155) Result status (test code = 1278223) This is Revised Report for [id number] [place] MethodistXR Chest 1 Vw [id number] 15:25:52Hm Interface, Radiology Results - 07/22/2020 3:28 PM CDT EXAMINATION: XR CHEST 1 VW PORTABLECLINICAL HISTORY: 75 years Female chest tube removedCOMPARISON: Radiograph dated July 22, 2020, 12:36 PMIMPRESSION:1.Right chest tube has been removed.2.Small right apical pneumothorax again visualized, not significantly increased comparedto prior imaging.3.Left basal atelectasis present. Lungs are otherwise clear. [id number] Methodist[facility] [id number] 12:31:00 Test Item Value Reference Range Interpretation Comments Product name (test code Red Blood Cells -1, = 25) Leukored Unit number (test code [id number] = 0180659) Product code (test code D3623A70 = 3092) Dispense status (test Returned to not code = 24) transfused Blood expiration date (test code = 302) Blood type code (test 6200 code = 308) Blood type (test code = A POSITIVE 1314) Compatibility (test Compatible code = 6400) [place] MethodistArterial blood gas, [id number] 09:50:36 Test Item Value Reference Range Interpretation Comments pH, arterial (test code 7.31 7.35-7.45 L = 2744-1) pCO2, arterial (test 48 See_Comment H [Autom ated message] code = 2018-09) The system ich generated this result transmitted ref erence range: 35 - 45 mmHg. The reference r arnoldo was not used to interpret this result as normal/abnor mal. pO2, arterial (test code 65 See_Comment L [A utomated message] = 8863-7) The system DreamLines generated this result transmitted ref erence range: 80 - 90 mmHg. The reference r arnoldo was not used to interpret this result as normal/abnor mal. Temperature, Celsius 37.0 Degrees C (test code = 8310-5) O2 saturation, arterial 89 % 95-100 L (test code = 2708-6) pH, arterial corrected 7.31 (test code = 16196-4) pCO2, arterial corrected 48 mmHg (test code = 59788-9) pO2, arterial corrected 65 mmHg (test code = 48913-2) Base excess, arterial -2 See_Comment [Auto mated message] (test code = 1925-7) The [facility] tem which generated this result transmitted ref erence range: -2 - 2 m Eq/L. The reference r arnoldo was not used to interpret this result as normal/abnor mal. Lab Interpretation (test Abnormal code = 96697-5) Asad MethodistGlucose level, [id number] 09:50:36 Test Item Value Reference Range Interpretation Comments Glucose, syringe (test code = 145 mg/dL 65-99 H 2345-7) Lab Interpretation (test code = Abnormal 82933-3) Asad GarnettHemoglobin, [id number] 09:50:36 Test Item Value Reference Range Interpretation Comments Hemoglobin, syringe (test code = 10.9 g/dL 12.0-16.0 L 718-7) Lab Interpretation (test code = Abnormal 35728-6) Asad MethodistIonized calcium, [id number] 09:50:36 Test Item Value Reference Range Interpretation Comments Ionized calcium, arterial (test 1.11 mmol/L 1.11-1.32 code = 02703-7) Asad MethodistPotassium, [id number] 09:50:36 Test Item Value Reference Range Interpretation Comments Potassium, syringe 4.7 See_Comment [Automat ed message] The (test code = 2007) system wh ich generated this result tra nsmitted reference range : 3.5 - 5.0 mEq/L. The refe rence range was not used to interpret this result as normal/abnormal . Asad FigueroaistSodium level, [id number] 09:50:36 Test Item Value Reference Range Interpretation Comments Sodium, syringe (test 139 See_Comment [Auto mated message] The code = 2947-0) system which generated this result tra nsmitted reference range : 135 - 148 mEq/L. The refe rence range was not used to interpret this result as normal/abnormal . Kamara MethodistArterial [id number] 09:06:54Luis Woods DO 07/21/2020 9:07 AMArterial line Patient Location: ORStart Time: 07/21/2020 8:06 AMEnd Time: 07/21/2020 8:13 AM Performed by: anesthesia residentAnesthesiologist: Jon Clark MDResident/WORKERS COMPENSATION SPECIALIST/AA: Luis Woods, DOAuthorized by: Jno Clark MD Pre-procedure: patient identified, IV checked, site and side verified, risks and benefits discussed, procedure verified, surgical consent complete, patient position confirmed, monitors and equipment checked, pre-op evaluation complete and timeout performed prior to procedure MSBT: antiseptic used, all elements of maximal sterile barrier technique followed, hand hygiene performed, cap/gown used by other personnel and solutions labeled Indications: Indications: hemodynamic monitoring Anesthesia: Anesthesia: GeneralProcedure Details: Arterial Line placement: Placed post induction Line placement site: RadialLine placement side: Right Arterial line gauge: 20 GNumber of attempts: 1Ultrasound guidance used: No Post-procedure: Post-procedure: Sterile dressing applied Post procedure circulation, sensation, movement: Unable to assess Patient tolerance: Patient tolerated the procedure well with noimmediate complicationsQu[place] Sabianist [id number] 08:07:00Luis Woods DO 07/21/2020 9:07 AMAirway Date/Time: 07/21/2020 8:07 AM Location: OR Performed by: anesthesia residentAnesthesiologist: Jon Clark MDResident/WORKERS COMPENSATION SPECIALIST/AA: Luis Woods, Authorized by: Jon Clark MD Urgency: ElectiveDifficult Airway: No Preoxygenated sdlk140% O2: Yes Mask Ventilation: Assisted maskFinal Airway Type: Endotracheal airwayFinal Endotracheal Airway: ETT - double lumen leftCuffed: Yes Technique Used: Direct laryngoscopyDevices/Methods Used in Placement: Intubating styletInsertion Site: OralBlade Type: MacintoshLaryngoscope Blade/Videolaryngoscope Blade Size: 3ETT Double Lumen (fr): 39Cuff at minimum occlusion pressure: Yes Measured from: LipsETT to Lips (cm): 28Placement Verified by: CO2 detection and fiber optic visualization Laryngoscopic view: Grade IIa - partial view of glottisRapid Sequence Induction (RSI): No Modified RSI: No Number of Attempts at Approach: 1 DL x 1 w mac 3, REGINO 39L passed atraumatically and secured at 28 [place] MethodistABO and Rh [id number] 07:25:00 Test Item Value Reference Range Interpretation Comments ABO grouping (test code = 883-9) A Rh type (test code = 45035-1) POS [place] MethodistCOVID-19 qualitative [id number] 15:39:36 Test Item Value Reference Range Interpretation Comments Interpretation (test Negative results do code = 2330594) not preclude 2019-nCoV infection and should not be used as the sole basis for treatment or other patient management decisions. Negative results must be combined with clinical observations, patient history, and epidemiological information. COVID-19 qualitative Not-Detected Not-Detected RT-PCR result (test code = 45441-2) COVID-19 qualitative See link below for C ase Number: RT-PCR (test code = PDF Lab Report [id number]) Asad FordPygwrftodJEUW-DgX-9 (COVID-19) RNA [Presence] in Respiratory specimen by JIGNA with probe [id number] 15:39:04 Test Item Value Reference Range Interpretation Comments SARS-CoV-2 (COVID-19) RNA Not detected Not-Detected [Presence] in Respiratory specimen by JIGNA with probe detection (test code = 07511-6) Whether patient is employed in a healthcare setting (test code = 22817-1) Whether the patient has symptoms related to condition of interest (test code = 55893-9) Patient was hospitalized because of this condition (test code = 40736-1) Whether the patient was admitted to intensive care unit (ICU) for condition of interest (test code = 95408-2) Whether patient resides in a congregate care setting (test code = 10295-4) SARS-CoV-2 (COVID-19) RNA [Presence] in Respiratory specimen by JIGNA with probe [id number] 17:08:57 Test Item Value Reference Range Interpretation Comments SARS-CoV-2 (COVID-19) RNA Not detected Not-Detected [Presence] in Respiratory specimen by JIGNA with probe detection (test code = 29397-4) Whether patient is employed in a healthcare setting (test code = 75750-2) Whether the patient has symptoms related to condition of interest (test code = 40691-3) Patient was hospitalized because of this condition (test code = 79860-2) Whether the patient was admitted to intensive care unit (ICU) for condition of interest (test code = 79400-5) Whether patient resides in a congregate care setting (test code = 41865-3) PET/CT Skull Base To Mid [id number] 16:07:49Hm Interface, Radiology Results 07/06/2020 4:10 PM CDT EXAMINATION: PET CT SKULL BASE TO MID THIGHCLINICAL HISTORY: R91.1 Solitary pulmonary nodule, Z01.818 Encounter for other preprocedural examination, pulmonary nodule ; RESTAGINGCOMPARISON: No prior PET scans available, chest CT 06/01/2020 TECHNIQUE: The patient received 10-15 mCi 18-FDG intravenously. 1 hour later, PET/CT scanning from the orbits to the mid thighs was performed. CT scanning was nondiagnostic and used for attenuation correction purposes and to aid in localization of any abnormal findings on the PET images. Automated dose exposure control was utilized to reduce radiation exposure. Blood glucose = 94.FINDINGS:Head and NeckNo suspicious lymph node uptake and no evidence of malignancy in the brain.ChestA stable 7.5 x 5.0 mm subpleural nodule in the lateral right apex is without significant uptake, but PET sensitivity is low for nodules of this size. No suspicious uptake in the: lungs, mediastinum, ambika, axillae.AbdomenUptake is normal in the: liver, spleen, adrenal glands, pancreas, kidneys, stomach. There is no suspicious retroperitoneal or mesenteric lymph node uptake.PelvisThere is no suspicious pelvic or inguinal lymph node uptake.Osseous StructuresThere is no suspicious osseous uptake. IMPRESSION:1.Right apical nodule is without definite uptake, but PET sensitivity is somewhat limited for nodules of this size. Malignancy is therefore not excluded and continued follow-up with CT in approximately 4 months recommended.2.No evidence of an FDG-avid malignancy.[facility]-[id number] [facility] Center Chest Wo [id number] 14:14:10Hm Interface, Radiology Results 07/06/2020 2:17 PM CDT EXAMINATION: CT CHEST WO CONTRASTCLINICAL HISTORY: 75 years Female R91.1 Solitary pulmonary nodule, Z01.818 Encounter for other preprocedural examination, [facility] protocol for localization of right upper lobe noduleTECHNIQUE: Multiple axial images of the chest were obtained without intravenous contrast. Sagittal and coronal computerized reformatted images were also obtained. CT imaging was performed with iterative reconstruction techniques and/or automated exposure control to reduce radiation dose. COMPARISON:[place] 19IMPRESSION:Lungs and airways: No interval change in a partially calcified 0.7 x 0.3 cm slightly lobulated subpleural nodule in the right upper lobe.No other nodules are presentMild centrilobular emphysematous changes are present throughout the lungs. Scarring in the lung apices and lung bases.Pleura: No pleural effusion or pneumothorax.Mediastinum and lymph nodes: No lymphadenopathy. Cardiovascular: The heart size is normal. No pericardial effusion. Mild calcified atherosclerotic vascular disease in the aota and coronary arteries.Upper abdomen: No suspicious abnormalities.Bones: Degenerative changes of the osseous structures. No suspicious lesions. Other: None.SUMMARY:*No interval change in a partially calcified lobulated 0.7 x 0.3 cm subpleural nodule in the right upper lobe.Kamara MethodistSpirometry pre & post w/ bronchodilator, diffusion, lung [id number] 10:45:49 Test Item Value Reference Range Interpretation Comments FEV1 Post (test code = 1.3 L 1.41-2.50 5349) FVC Post (test code = 2.09 L 1.96-3.26 5356) FEV1/FVC % Post (test 62.21 % 65.29-84.88 code = 5363) FEF 25-75% Post (test 0.59 L/s 0.43-2.76 code = 5549) PEF Post (test code = 4.71 L/s 3.42-6.63 5369) DLCO Pre (test code = 8.55 See_Comment [Auto mated message] 4807) The system DreamLines generated this result transmitted ref erence range: 12.74 - 25.74 ml/(min*mmHg). The reference range was not used to interpr et this result as normal/abnormal . DLCOc Pre (test code = 8.78 See_Comment [Aut omated message] 6001) The system DreamLines generated this result transmitted ref erence range: 12.74 - 25.74 ml/(min*mmHg). The reference range was not used to interpr et this result as normal/abnormal . DL/VA Pre (test code = 2.71 See_Comment [Aut omated message] 3213) The system DreamLines generated this result transmitted ref erence range: 3.00 - 5 .63 ml/(min*mmHg*L) . The reference range was not used to interpr et this result as normal/abnormal . KCOc SB Pre (test code 2.78 See_Comment [Aut omated message] = 5535) The system DreamLines generated this result transmitted ref erence range: 3.00 - 5 .63 ml/(min*mmHg*L) . The reference range was not used to interpr et this result as normal/abnormal . VA SB Pre (test code = 3.15 L 3.63-5.84 5444) Hb Pre (test code = 12.6 g(Hb)/dL 5540) VC Pre (test code = 1.84 L 1.96-3.26 5374) ERV Pre (test code = 0.5 L 0.57-0.57 5381) FRCpl Pre (test code = 2.89 L 1.78-3.42 5388) IC Pre (test code = 1.34 L 1.72-1.72 5395) RV Pre (test code = 2.38 L 1.46-2.61 5402) RV % TLC Pre (test 56.45 % 34.53-53.71 code = 5409) TLC Pre (test code = 4.22 L 3.62-5.59 5416) Raw Pre (test code = 7.05 See_Comment [Autom ated message] 5507) The system DreamLines generated this result transmitted ref erence range: 3.06 - 3 .06 cmH2O*s/L. The reference range was not used to interpr et this result as normal/abnormal . R0.5IN Pre (test code 3.61 See_Comment [Auto mated message] = 5514) The system DreamLines generated this result transmitted ref erence range: 3.06 - 3 .06 cmH2O*s/L. The reference range was not used to interpr et this result as normal/abnormal . sR0.5IN Pre (test code 11.59 cmH2O*s = 5521) sGaw Predicted (test 0.04 See_Comment [Autom ated message] code = 5528) The system DreamLines generated this result transmitted ref erence range: 0.10 - 0 .10 1/(cmH2O*s). Th e reference range was not used to interpr et this result as normal/abnormal . FEV1 Pre (test code = 1.16 L 1.41-2.50 5348) FVC Pre (test code = 1.89 L 1.96-3.26 5354) FEV1/FVC % Pre (test 61.62 % 65.29-84.88 code = 5361) FEF 25-75% Pre (test 0.47 L/s 0.43-2.76 code = 5547) PEF Pre (test code = 3.83 L/s 3.42-6.63 5367) FEV1 Predicted (test 1.95 code = 5302) FEV1 LLN (test code = 1.41 5347) FEV1 % Pre of 59.5 % Predicted (test code = 5308) FEV1 % Post of 66.5 % Predicted (test code = 5350) FEV1 % Change (test 11.9 % code = 5351) FVC Predicted (test 2.61 code = 5307) FVC LLN (test code = 1.96 5353) FVC % Pre of Predicted 72.3 % (test code = 5355) FVC % Post of 80.1 % Predicted (test code = 5357) FVC % Change (test 10.8 % code = 5358) FEV1/FVC % Predicted 75 (test code = 5359) FEV1/FVC % LLN (test 65 code = 5360) FEV1/FVC % Pre of 82.1 % Predicted (test code = 5362) FEV1/FVC % Post of 82.9 % Predicted (test code = 5364) FEV1/FVC % Change 1 % (test code = 5365) FEF 25-75% Predicted 1.59 (test code = 5546) FEF 25-75% LLN (test 0.43 code = 5545) FEF 25-75% % Pre of 29.5 % Predicted (test code = 5548) FEF 25-75% % Post of 37.1 % Predicted (test code = 5550) FEF 25-75% % Change 25.7 % (test code = 5551) PEF Predicted (test 5.03 code = 5310) PEF LLN (test code = 3.42 5366) PEF % Pre of Predicted 76.1 % (test code = 5368) PEF % Post of 93.7 % Predicted (test code = 5370) PEF % Change (test 23.2 % code = 5371) VC Predicted (test 2.61 code = 5372) VC LLN (test code = 1.96 5373) VC % Pre of Predicted 70.5 % (test code = 5375) ERV Predicted (test 0.57 code = 5379) ERV LLN (test code = 0.57 5380) ERV % Pre of Predicted 88.7 % (test code = 5382) FRCpl % Predicted 2.6 (test code = 5386) FRCpl % LLN (test code 1.78 = 5387) FRCpl % Pre of 111 % Predicted (test code = 5389) IC Predicted (test 1.72 code = 5393) IC LLN (test code = 1.72 5394) IC % Pre of Predicted 77.9 % (test code = 5396) RV Predicted (test 2.03 code = 5400) RV LLN (test code = 1.46 5401) RV % Pre of Predicted 117.2 % (test code = 5403) RV % TLC Predicted 44 (test code = 5407) RV % TLC LLN (test 35 code = 5408) RV % TLC % Pre of 127.9 % Predicted (test code = 5410) TLC Predicted (test 4.6 code = 5414) TLC LLN (test code = 3.62 5415) TLC % Pre of Predicted 91.7 % (test code = 5417) Raw Predicted (test 3.06 code = 5505) Raw LLN (test code = 3.06 5506) Raw % Pre of Predicted 230.5 % (test code = 5508) R0.5IN Predicted (test 3.06 code = 5512) R0.5IN LLN (test code 3.06 = 5513) R0.5IN % Pre of 118.1 % Predicted (test code = 5515) sGaw Predicted (test 0.1 code = 5526) sGaw LLN (test code = 0.1 5527) sGaw % Pre of 43.4 % Predicted (test code = 5529) DLCO Predicted (test 24 code = 5421) DLCO LLN (test code = 12. 5422) DLCO % Pre of 44.4 % Predicted (test code = 5424) DLCOc Predicted (test 24 code = 5428) DLCOc LLN (test code = 1274 5429) DLCOc % Pre of 45.6 % Predicted (test code = 5431) DL/VA Predicted (test 4.32 code = 5435) DL/VA LLN (test code = 3 5436) DL/VA % Pre of 62.8 % Predicted (test code = 5438) KCOc SB Predicted 4.32 (test code = 5533) KCOc SB LLN (test code 3 = 5534) KCOc SB % Pre of 64.4 % Predicted (test code = 5536) VA SB Predicted (test 4.73 code = 5442) VA SB LLN (test code = 3.63 5443) VA SB % Pre of 66.6 % Predicted (test code = 5445) [facility] Chest External [id number] 11:55:18This exam was not acquired at a [facility] facility and has not been interpreted by a [facility] Provider. The exam was imported into our imaging system.Asad Garnett
[2020-08-12 01:58] LABS: Protime INR 1.03
[2020-08-12 01:59] LABS: Hematocrit 36.7 % (36.0-45.0); Lymphocytes % 19.3 % (15.3-44.8); MPV 8.9 fL (7.6-11.3); RBC Red Blood Cell Count 4.06 M/uL (3.86-4.86)
[2020-08-12 02:13] LABS: ALT/SGPT 19 U/L (12-78); AST/SGOT 17 U/L (15-37); Albumin 3.2 g/dL (3.4-5.0); Alkaline Phosphatase 102 U/L (45-117); BUN Blood Urea Nitrogen 14 mg/dL (7-18); Bicarbonate 26 mmol/L (21-32); Bilirubin Direct < 0.1 mg/dL (0-0.2); Bilirubin Total 0.4 mg/dL (0.2-1.0); Glucose Level 122 mg/dL (74-106); Magnesium 2.1 mg/dL (1.8-2.4); NT PRO-BNP 314 pg/mL (<125); Potassium 3.9 mmol/L (3.5-5.1); Sodium Level 142 mmol/L (136-145); Troponin (Emerg Dept Use Only) < 0.02 ng/mL (0.0-0.045)
[2020-08-12] MEDS ORDERED: ALBUTEROL 2.5 MG/3 ML NEB SOL ONE ×2 (02:23→09:45)
[2020-08-12] MEDS ORDERED: METHYLPREDNISOLONE 125 MG INJ ONE (02:23)
[2020-08-12] MEDS ORDERED: NA CHLORIDE 0.9% 250 ML ONE ×2 (02:24→20:37)
[2020-08-12] MEDS ORDERED: NA CHLORIDE 0.9% 1,000 ML ONE (02:24)
[2020-08-12] MEDS ORDERED: IPRATROPIUM BROM 0.5MG/2.5ML ONE ×2 (02:24→09:46)
[2020-08-12] MEDS ORDERED: AZITHROMYCIN 500 MG INJ IVPB ONE ×2 (02:24→20:37)
--- NOTE | 2020-08-12 03:47 | ER ---
Nurse's Notes [facility] Name: Sherman Cook Age: 75 yrs Sex: Female : 1945 Arrival Date: 08/12/2020 Time: 01:32 Bed 5 Private MD: Diagnosis: COPD/ Chronic obstructive pulmonary disease with (acute) exacerbation Presentation: 08/12 01:25 Chief complaint: Chief complaint: EMS states: Pt called us due to SOB. She recently had jb4 a lung surgery and has not been getting treated for her hypertension. She had auditory wheezes and was satting in the 80's on room air. We gave an A:A 1:1, she began to sat 100. 01:25 Coronavirus screen: Client denies travel out of the [place] in the last 14 days. At this jb4 time, the client does not indicate any symptoms associated with coronavirus-19. Ebola Screen: No symptoms or risks identified at this time. Initial Sepsis Screen: Does the patient meet any 2 criteria? HR > 90 bpm. Yes Does the patient have a suspected source of infection? No. Patient's initial sepsis screen is negative. Risk Assessment: Do you want to hurt yourself or someone else?. Onset of symptoms was August 12, 2020. Transition of care: patient was not received from another setting of care. 01:25 Method Of Arrival: Ambulatory jb4 01:25 Acuity: TAYE 3 jb4 Historical: - Allergies: 01:25 Codeine; jb4 01:25 PENICILLINS; jb4 - PMHx: 01:25 Arthritis; Bronchitis; COPD; Hypertensive disorder; Rheumatoid arthritis; jb4 - PSHx: 01:25 lung surgery; jb4 - Immunization history:: Adult Immunizations up to date. - Social history:: Smoking status: Patient denies any tobacco usage or history of. Patient/guardian denies using alcohol, street drugs. - Family history:: not pertinent. Screenin:30 Abuse screen: Denies threats or abuse. Nutritional screening: No deficits noted. jb4 Tuberculosis screening: No symptoms or risk factors identified. Fall Risk None identified. Assessment: 01:30 General: Appears in no apparent distress. comfortable, Behavior is calm, cooperative, jb4 appropriate for age. Pain: Denies pain. Neuro: Level of Consciousness is awake, alert, obeys commands, Oriented to person, place, time, situation. Cardiovascular: Patient's skin is warm and dry. Rhythm is sinus tachycardia. Respiratory: Airway is patent Respiratory effort is even, unlabored, Respiratory pattern is regular, symmetrical, Breath sounds are clear bilaterally. GI: No signs and/or symptoms were reported involving the gastrointestinal system. : No signs and/or symptoms were reported regarding the genitourinary system. EENT: No signs and/or symptoms were reported regarding the EENT system. Derm: Skin is intact, Skin is pink, warm \T\ dry. Musculoskeletal: No signs and/or symptoms reported regarding the musculoskeletal system. Circulation, motion, and sensation intact. Range of motion: intact in all extremities. 02:30 Reassessment: Patient appears in no apparent distress at this time. Patient and/or jb4 family updated on plan of care and expected duration. Pain level reassessed. Patient is alert, oriented x 3, equal unlabored respirations, skin warm/dry/pink. 03:30 Reassessment: Pt assisted to the restroom via wheelchair and back to bed. Pt reports jb4 SOB and exhibits increased effort in breathing. Provider notified. see mar for orders, received verbal order to place pt on 2L NC. 04:30 Reassessment: Patient appears in no apparent distress at this time. Patient and/or jb4 family updated on plan of care and expected duration. Pain level reassessed. Patient is alert, oriented x 3, equal unlabored respirations, skin warm/dry/pink. 19:20 Reassessment: Patient and/or family updated on plan of care and expected duration. Pain ea level reassessed. Patient is alert, oriented x 3, equal unlabored respirations, skin warm/dry/pink. Report given to receiving nurse on fourth floor. Vital Signs: 01:25 BP 191 / 75; Pulse 117; Resp 20; Temp 97.5(TE); Pulse Ox 96% on R/A; Weight 63.5 kg jb4 (R); Height 5 ft. 2 in. (157.48 cm) (R); Pain 0/10; 02:15 BP 136 / 68; Pulse 98; Resp 13; Pulse Ox 95% on R/A; jb4 03:00 BP 149 / 65; Pulse 110; Resp 19; Pulse Ox 97% on 2 lpm NC; jb4 04:30 BP 127 / 57; Pulse 96; Resp 20; Pulse Ox 97% on 2 lpm NC; jb4 19:21 BP 117 / 52; Pulse 63; Resp 18; Temp 98; Pulse Ox 99% ; ea 01:25 Body Mass Index 25.61 (63.50 kg, 157.48 cm) jb4 ED Course: 01:25 Arm band placed on right wrist. jb4 01:30 Initial lab(s) drawn, by me, sent to lab. Inserted saline lock: 18 gauge in right jb4 antecubital area, using aseptic technique. Blood collected. 01:30 Patient has correct armband on for positive identification. Bed in low position. Call jb4 light in reach. Side rails up X 1. Pulse ox on. NIBP on. 01:31 EKG done, by ED staff, reviewed by Ayala Vera MD. em 01:32 Patient arrived in ED. em 01:36 Gama Cloud, RN is Primary Nurse. jb4 01:39 Triage completed. jb4 01:45 Ayala Vera MD is Attending Physician. ma2 01:53 XRAY Chest (1 view) In Process Unspecified. EDMS 03:47 Aquiles Gracia MD is Hospitalizing Provider. ma2 05:26 No provider procedures requiring assistance completed. Patient admitted, IV remains in jb4 place. 07:32 Primary Nurse role handed off by Gama Cloud, SUSANA bd 15:41 Fide Wu, SUSANA is Primary Nurse. hb Administered Medications: 02:15 Drug: NS 0.9% 1000 ml Route: IV; Rate: 125 ml/hr; Site: right antecubital; jb4 03:53 Follow up: Response: No adverse reaction; IV Status: Infusion continued upon admission jb4 02:15 Drug: MethylPrednisoLONE 125 mg Route: IVP; Site: right antecubital; jb4 02:45 Follow up: Response: No adverse reaction jb4 02:15 Drug: Albuterol - atroVENT (ipratropium) (3:1) (2.5 mg - 0.5 mg) 3 ml Route: Nebulizer; jb4 02:56 Follow up: Response: No adverse reaction; Marked relief of symptoms bb 02:16 Not Given (Physician Discretion): Magnesium Sulfate 1 grams IVPB once over 1 hrs jb4 02:17 Drug: AZITHromycin 500 mg Route: IVPB; Infused Over: 1 hrs; Site: right antecubital; jb4 03:17 Follow up: Response: No adverse reaction; IV Status: Completed infusion jb4 03:52 Drug: Magnesium Sulfate 2 grams Route: IVPB; Infused Over: 2 hrs; Site: right jb4 antecubital; 03:53 Follow up: Response: No adverse reaction; IV Status: Infusion continued upon admission jb4 Outcome: 03:47 Decision to Hospitalize by Provider. ma2 05:26 Admitted to ER Hold. Please see [facility] for further documentation. jb4 05:26 Condition: stable 05:26 Discharge instructions given to patient, family, Instructed on the need for admit, Demonstrated understanding of instructions. 19:35 Patient left the ED. mikel Signatures: Dispatcher [employer] EDBarbi Magana Edgar RN Jacquie Connell RN RN bb Baxter, Heather, RN RN hb Bryson, James, RN RN jb4 Antunez, Elena, RN RN ea Alzahri, Mohammad, MD MD ma2 Corrections: (The following items were deleted from the chart) 01:43 01:25 Chief complaint: jb4 jb4
--- NOTE | 2020-08-12 03:48 | EDPHYS ---
Physician Documentation [facility] Name: Sherman Cook Age: 75 yrs Sex: Female : 1945 Arrival Date: 08/12/2020 Time: 01:32 Bed 5 Private MD: ED Physician Ayala Vera HPI: 08/12 01:46 This 75 yrs old Female presents to ER via Ambulatory with complaints of ma2 Shortness Of Breath. 01:46 The patient has shortness of breath at rest. Onset: The symptoms/episode began/occurred ma2 gradually, 1 day(s) ago. Associated signs and symptoms: Pertinent positives: non-productive cough, Pertinent negatives: productive cough, fever, loss of consciousness, nausea. Severity of symptoms: At their worst the symptoms were moderate in the emergency department the symptoms are unchanged. The patient has experienced similar episodes in the past. hx of copd, never had pe or dvt, no le edema or pain . Historical: - Allergies: 01:25 Codeine; jb4 01:25 PENICILLINS; jb4 - PMHx: 01:25 Arthritis; Bronchitis; COPD; Hypertensive disorder; Rheumatoid arthritis; jb4 - PSHx: 01:25 lung surgery; jb4 - Immunization history:: Adult Immunizations up to date. - Social history:: Smoking status: Patient denies any tobacco usage or history of. Patient/guardian denies using alcohol, street drugs. - Family history:: not pertinent. ROS: 01:46 Constitutional: Negative for fever, chills, and weight loss. ma2 01:46 All other systems are negative. Exam: 01:46 Constitutional: This is a well developed, well nourished patient who is awake, alert, ma2 and in no acute distress. Eyes: Pupils equal round and reactive to light, extra-ocular motions intact. Lids and lashes normal. Conjunctiva and sclera are non-icteric and not injected. Cornea within normal limits. Periorbital areas with no swelling, redness, or edema. ENT: Nares patent. No nasal discharge, no septal abnormalities noted. Tympanic membranes are normal and external auditory canals are clear. Oropharynx with no redness, swelling, or masses, exudates, or evidence of obstruction, uvula midline. Mucous membranes moist. Neck: Trachea midline, no thyromegaly or masses palpated, and no cervical lymphadenopathy. Supple, full range of motion without nuchal rigidity, or vertebral point tenderness. No Meningismus. Chest/axilla: Normal chest wall appearance and motion. Nontender with no deformity. No lesions are appreciated. Cardiovascular: Regular rate and rhythm with a normal S1 and S2. No gallops, murmurs, or rubs. Normal PMI, no JVD. No pulse deficits. Abdomen/GI: Soft, non-tender, with normal bowel sounds. No distension or tympany. No guarding or rebound. No evidence of tenderness throughout. MS/ Extremity: Pulses equal, no cyanosis. Neurovascular intact. Full, normal range of motion. Neuro: Awake and alert, GCS 15, oriented to person, place, time, and situation. Cranial nerves II-XII grossly intact. Motor strength 5/5 in all extremities. Sensory grossly intact. Cerebellar exam normal. Normal gait. 01:46 Respiratory: moderate respiratory distress is noted, Respirations: labored breathing, Breath sounds: wheezing: inspiratory expiratory is heard diffusely. Vital Signs: 01:25 BP 191 / 75; Pulse 117; Resp 20; Temp 97.5(TE); Pulse Ox 96% on R/A; Weight 63.5 kg jb4 (R); Height 5 ft. 2 in. (157.48 cm) (R); Pain 0/10; 02:15 BP 136 / 68; Pulse 98; Resp 13; Pulse Ox 95% on R/A; jb4 03:00 BP 149 / 65; Pulse 110; Resp 19; Pulse Ox 97% on 2 lpm NC; jb4 04:30 BP 127 / 57; Pulse 96; Resp 20; Pulse Ox 97% on 2 lpm NC; jb4 19:21 BP 117 / 52; Pulse 63; Resp 18; Temp 98; Pulse Ox 99% ; ea 01:25 Body Mass Index 25.61 (63.50 kg, 157.48 cm) jb4 MDM: 01:45 Patient medically screened. ma2 01:46 Differential diagnosis: Anxiety Reaction asthma, Bronchitis CHF exacerbation, Chronic ma2 Obstructive Pulmonary Disease Myocardial Infarction reactive airway disease. Data reviewed: vital signs, nurses notes. 08/12 01:41 Order name: Basic Metabolic Panel em 08/12 01:41 Order name: CBC with Diff; Complete Time: 02:43 em 08/12 01:41 Order name: LFT's; Complete Time: 02:43 em 08/12 01:41 Order name: Magnesium; Complete Time: 02:43 em 08/12 01:41 Order name: NT PRO-BNP; Complete Time: 02:43 em 08/12 01:41 Order name: PT-INR; Complete Time: 02:43 em 08/12 01:41 Order name: Troponin (emerg Dept Use Only); Complete Time: 02:43 em 08/12 01:41 Order name: Basic Metabolic Panel; Complete Time: 02:43 EDMS 08/12 05:00 Order name: Basic Metabolic Panel EDCA 08/12 05:00 Order name: Basic Metabolic Panel EDCA 08/12 05:00 Order name: NT PRO-BNP EDCA 08/12 05:00 Order name: NT PRO-BNP EDCA 08/12 05:00 Order name: Troponin I EDCA 08/12 01:41 Order name: XRAY Chest (1 view) em 08/12 01:41 Order name: EKG; Complete Time: 01:42 em 08/12 01:41 Order name: Cardiac monitoring; Complete Time: 01:47 em 08/12 01:41 Order name: EKG - Nurse/Tech; Complete Time: 01:47 em 08/12 01:41 Order name: IV Saline Lock; Complete Time: 01:47 em 08/12 01:41 Order name: Labs collected and sent; Complete Time: 01:47 em 08/12 05:00 Order name: Troponin I EDCA 08/12 05:00 Order name: Troponin I EDCA 08/12 05:00 Order name: Heart Healthy EDCA 08/12 05:58 Order name: SARS-COV-2 RT PCR EDCA 08/12 01:41 Order name: O2 Per Protocol; Complete Time: 01:47 em 08/12 01:41 Order name: O2 Sat Monitoring; Complete Time: 01:47 em Administered Medications: 02:15 Drug: NS 0.9% 1000 ml Route: IV; Rate: 125 ml/hr; Site: right antecubital; jb4 03:53 Follow up: Response: No adverse reaction; IV Status: Infusion continued upon admission jb4 02:15 Drug: MethylPrednisoLONE 125 mg Route: IVP; Site: right antecubital; jb4 02:45 Follow up: Response: No adverse reaction jb4 02:15 Drug: Albuterol - atroVENT (ipratropium) (3:1) (2.5 mg - 0.5 mg) 3 ml Route: Nebulizer; jb4 02:56 Follow up: Response: No adverse reaction; Marked relief of symptoms bb 02:16 Not Given (Physician Discretion): Magnesium Sulfate 1 grams IVPB once over 1 hrs jb4 02:17 Drug: AZITHromycin 500 mg Route: IVPB; Infused Over: 1 hrs; Site: right antecubital; jb4 03:17 Follow up: Response: No adverse reaction; IV Status: Completed infusion jb4 03:52 Drug: Magnesium Sulfate 2 grams Route: IVPB; Infused Over: 2 hrs; Site: right jb4 antecubital; 03:53 Follow up: Response: No adverse reaction; IV Status: Infusion continued upon admission jb4 Disposition Summary: 08/12/20 03:47 Hospitalization Ordered Hospitalization Status: Observation ma2 Provider: Aquiles Gracia ma Condition: Stable ma2 Problem: new ma2 Symptoms: are unchanged ma2 Bed/Room Type: Standard [facility] Location: Telemetry/MedSurg (observation)(08/12/20 17:59) dw Room Assignment: [facility](08/12/20 17:59) Diagnosis - COPD/ Chronic obstructive pulmonary disease with (acute) exacerbation [facility] Forms: - Medication Reconciliation Form ma2 - SBAR form oh2 Signatures: Dispatcher [employer] EDAudra Quintero RN RN dw Munoz, Edgar RN Gracy Johns RN RN tl1 Gama Cloud RN RN jb4 Ayala Vera MD MD ma2 Jacquie Randhawa RN bb Corrections: (The following items were deleted from the chart) 04:49 03:54 CORONAVIRUS+MR.LAB.BRZ ordered. EDCA EDMS 05:17 03:47 Telemetry/MedSurg (observation) ma2 tl1 05:17 03:47 ma2 tl1 17:59 05:[address] [facility] ER HOLD tl1 dw 17:59 05:17 ERHOLD- tl1 dw
[2020-08-12] MEDS ORDERED: Magnesium Sulfate 2gm IVPB 2 G/50 ML BAG IV ONE (04:11)
[2020-08-12] MEDS ORDERED: IPRATROPIUM BROM 0.5MG/2.5ML NEB PRN (04:58)
[2020-08-12] MEDS ORDERED: ALBUTEROL 2.5 MG/3 ML NEB SOL NEB PRN (04:58)
[2020-08-12 05:27] VITALS: BMI 25.6
--- NOTE | 2020-08-12 07:38 | RAD REPORT ---
EXAM DESCRIPTION: Juani Single View08/12/2020 1:54 am CLINICAL HISTORY: Shortness of breath COMPARISON: 2019 FINDINGS: Small right pleural effusion may be present. Opacity medial right lung base represents epi cardial fat The lungs appear clear of acute infiltrate. The heart is normal size IMPRESSION: Small right pleural effusion may present
[2020-08-12] MEDS: METHYLPREDNISOLONE 40 MG INJ IV SCH ×2 (09:00→17:00)
[2020-08-12] MEDS ORDERED: METHYLPREDNISOLONE 40 MG INJ ONE ×2 (10:13→18:51)
--- NOTE | 2020-08-12 12:59 | P.HP ---
Certification for Inpatient Patient admitted to: Observation With expected LOS: <2 Midnights Practitioner: I am a practitioner with admitting privileges, knowledge of patient current condition, hospital course, and medical plan of care. Services: Services provided to patient in accordance with Admission requirements found in Title 42 Section 412.3 of the Code of Federal Regulations Patient History Date of Service: 08/12/20 Reason for admission: SHORT OF BREATH History of Present Illness: ALICIA IS A KNOWN COPD PATIENT WHO HAS DONE WELL ON TRELEGY UNTIL RECENTLY. SHE HAS BEEN SHORT OF BREATH FOR A WEEK OR SO FAILED ORAL MEDROL DOSE PACK AND REPORTS TO ER. SHE HAS NO SPUTUM, NO FEVER. Allergies Penicillins Allergy (Mild, Verified 01/16/12 12:32) Rash codeine [Codeine] Adverse Reaction (Intermediate, Verified 01/16/12 12:32) vomitting Home medications list reviewed: Yes Home Medications: Cyclosporine [Restasis] 1 each OP DAILY 09/07/15 Duloxetine HCl [Cymbalta] 60 mg PO DAILY 09/07/15 Leflunomide [Arava] 10 mg PO DAILY 09/07/15 Fluticasone/Umeclidin/Vilanter [Trelegy Ellipta 100-62.5-25] 1 puff IH DAILY 03/18/19 Ipratrop/Albuterol Inhaler [Combivent*] 2 puff IH BID PRN 03/18/19 Azithromycin Tab [Zithromax*] 250 mg PO ZPAK #1 maría elena 03/20/19 Oseltamivir [Tamiflu] 75 mg PO BID #6 cap 03/20/19 - Past Medical/Surgical History Has patient received pneumonia vaccine in the past: Yes Diabetic: No -: PNEUMONIA -: BRONCHITIS -: COPD -: RA -: CATARACT SX BILATERAL EYES - Social History Smoking Status: Former smoker Alcohol use: No CD- Drugs: No Caffeine use: Yes Place of Residence: Home Review of Systems 10-point ROS is otherwise unremarkable General: Weakness Respiratory: Shortness of Breath Physical Examination - Vital Signs Temperature: 97.2 F Blood Pressure: 138/57 Pulse: 86 Respirations: 21 Pulse Ox (%): 98 - Physical Exam General: Alert, In no apparent distress HEENT: Atraumatic, PERRLA, Mucous membr. moist/pink, EOMI, Sclerae nonicteric Neck: Supple, 2+ carotid pulse no bruit, No LAD, Without JVD or thyroid abnormality Respiratory: Diminished Cardiovascular: Regular rate/rhythm, Normal S1 S2 Gastrointestinal: Normal bowel sounds, No tenderness Musculoskeletal: No tenderness Integumentary: No rashes Neurological: Normal gait, Normal speech, Normal strength at 5/5 x4 extr, Normal tone, Normal affect Lymphatics: No axilla or inguinal lymphadenopathy - Studies Laboratory Data (last 24 hrs) 08/12/20 01:30: PT 11.9, INR 1.03 08/12/20 01:30: WBC 10.10, Hgb 12.2, Hct 36.7, Plt Count 225 08/12/20 01:30: Sodium 142, Potassium 3.9, BUN 14, Creatinine 0.79, Glucose 122 H, Magnesium 2.1, Total Bilirubin 0.4, AST 17, ALT 19, Alkaline Phosphatase 102 Assessment and Plan - Problems (Diagnosis) (1) Decompensated chronic obstructive pulmonary disease with exacerbation Onset Date: 09/08/15 Current Visit: No Status: Chronic Plan: STEROIDS IV NEBS Q6H PROGNOSIS GUARDED. - Advance Directives Does patient have a Living Will: No Does patient have a Durable POA for Healthcare: No
[2020-08-12] MEDS: ALBUTEROL 2.5 MG/3 ML NEB SOL NEB SCH ×2 (14:55→20:00)
[2020-08-12] MEDS: IPRATROPIUM BROM 0.5MG/2.5ML NEB SCH ×2 (14:55→20:00)
--- NOTE | 2020-08-12 16:34 | EKG ---
Test Date: 2020-08-12 Test Time: 01:31:39 Separating Machine Operator: SHANEKA MEASUREMENT RESULTS: Intervals: Rate: 110 MT: 130 QRSD: 72 QT: 322 QTc: 435 Bowdle: P: 78 MT: 130 QRS: 53 T: 164 INTERPRETIVE STATEMENTS: Sinus tachycardia T wave abnormality, consider inferolateral ischemia Abnormal ECG Compared to ECG 03/18/2019 00:40:28 T-wave abnormality now present ST (T wave) deviation no longer present Possible ischemia still present Electronically Signed On 08-12-20 16:32:59 CDT by Héctor Betancourt
[2020-08-12] MEDS ORDERED: AZITHROMYCIN IV 500 MG in NA CHLORIDE 0.9% 250 ML IVPB SCH (21:00)
[2020-08-13] MEDS: METHYLPREDNISOLONE 40 MG INJ IV SCH ×2 (00:10→08:16)
[2020-08-13] MEDS: IPRATROPIUM BROM 0.5MG/2.5ML NEB SCH ×2 (01:18→07:45)
[2020-08-13 02:14] VITALS: O2SAT 98
[2020-08-13 03:56] LABS: Basophils % 0.2 % (0-1.3); Hematocrit 33.5 % (36.0-45.0); Lymphocytes % 7.9 % (15.3-44.8); MPV 8.9 fL (7.6-11.3); RBC Red Blood Cell Count 3.69 M/uL (3.86-4.86)
[2020-08-13 04:12] LABS: Potassium 4.4 mmol/L (3.5-5.1)
[2020-08-13] MEDS: ALBUTEROL 2.5 MG/3 ML NEB SOL NEB SCH (07:45)
[2020-08-13 08:53] LABS: Blood Morphology Comment NOT SEEN (NOT SEEN); Platelet Estimate ADEQ
[2020-08-13] MEDS ORDERED: ENOXAPARIN 40 MG/0.4 ML SQ SCH (09:00)
[2020-08-13 09:23] VITALS: BP 105/47; TEMP 97.2
--- NOTE | 2020-08-13 21:14 | P.DS ---
Admission Date: 08/12/20 Discharge Date: 08/13/20 Disposition: ROUTINE DISCHARGE Reason for Admission: SHORT OF BREATH - Problems (1) Decompensated chronic obstructive pulmonary disease with exacerbation Onset Date: 09/08/15 Status: Chronic Brief History of Present Illness: ALICIA IS A KNOWN COPD PATIENT WHO HAS DONE WELL ON TRELEGY UNTIL RECENTLY. SHE HAS BEEN SHORT OF BREATH FOR A WEEK OR SO FAILED ORAL MEDROL DOSE PACK AND REPORTS TO ER. SHE HAS NO SPUTUM, NO FEVER. Hospital Course: ALICIA IS A SEVERE COPD PATIENT WHO CAME WITH COPD EXACERBATION, IMPROVED ON IV STEROIDS, NEBS AND ABX. SHE IS STABLE TO GO HOME ON MEDROL DOSE PACK AND Z NATHANIEL. Vital Signs/Physical Exam: Temp Pulse Resp BP Pulse Ox 97.2 F 73 18 105/47 L 100 08/13/20 08:00 08/13/20 08:00 08/13/20 08:00 08/13/20 08:00 08/13/20 08:00 Laboratory Data at Discharge: WBC 12.60 K/uL (4.3-10.9) H D 08/13/20 02:33 Hgb 10.9 g/dL (12.0-15.0) L 08/13/20 02:33 Hct 33.5 % (36.0-45.0) L 08/13/20 02:33 Plt Count 239 K/uL (152-406) 08/13/20 02:33 PT 11.9 SECONDS (9.5-12.5) 08/12/20 01:30 INR 1.03 08/12/20 01:30 Sodium 142 mmol/L (136-145) 08/13/20 02:33 Potassium 4.4 mmol/L (3.5-5.1) 08/13/20 02:33 BUN 17 mg/dL (7-18) 08/13/20 02:33 Creatinine 0.70 mg/dL (0.55-1.3) 08/13/20 02:33 Glucose 145 mg/dL (74-106) H 08/13/20 02:33 Magnesium 2.1 mg/dL (1.8-2.4) 08/12/20 01:30 Total Bilirubin 0.4 mg/dL (0.2-1.0) 08/12/20 01:30 AST 17 U/L (15-37) 08/12/20 01:30 ALT 19 U/L (12-78) 08/12/20 01:30 Alkaline Phosphatase 102 U/L (45-117) 08/12/20 01:30 Troponin I < 0.02 ng/mL (0.0-0.045) 08/12/20 12:01 Home Medications: Cyclosporine [Restasis] 1 each OP DAILY 09/07/15 Duloxetine HCl [Cymbalta] 60 mg PO DAILY 09/07/15 Leflunomide [Arava] 10 mg PO DAILY 09/07/15 Fluticasone/Umeclidin/Vilanter [Trelegy Ellipta 100-62.5-25] 1 puff IH DAILY 03/18/19 Ipratrop/Albuterol Inhaler [Combivent*] 2 puff IH BID PRN 03/18/19 Azithromycin Tab [Zithromax*] 250 mg PO ZPAK #1 natahniel 03/20/19 Oseltamivir [Tamiflu] 75 mg PO BID #6 cap 03/20/19 Azithromycin [Zithromax Tri-Nathaniel] 500 mg PO DIRECTED #1 packet 08/13/20 Methylprednisolone [Medrol dosepack] 4 mg PO DIRECTED #1 nathaniel 08/13/20 New Medications: Methylprednisolone [Medrol dosepack] 4 mg PO DIRECTED #1 nathaniel Azithromycin [Zithromax Tri-Nathaniel] 500 mg PO DIRECTED #1 packet Followup: Aquiles Gracia MD [ACTIVE - CAN ADMIT] -
== END 2020-08-13 10:41 | disposition home or self-care (01) ==
LOC: ER 01:26 → ERHOLD 04:59 → 4TH 19:23
PROVIDERS: ADMIT Internal Medicine; ATTEND Internal Medicine
DX: J44.1 Chronic obstructive pulmonary disease with (acute) exacerbation (principal); M06.9 Rheumatoid arthritis, unspecified; I10 Essential (primary) hypertension; Z87.01 Personal history of pneumonia (recurrent); Z87.891 Personal history of nicotine dependence; Z88.0 Allergy status to penicillin; Z88.6 Allergy status to analgesic agent
CPT/HCPCS: 96365; 96361; 93005; 85025 ×2; 80048 ×2; 36415 ×2; 83735; 85610; 80076; 84484 ×3; 83880 ×2; 71045; 94640; 94760 ×3; 96375; 99285; U0003; J0456 ×2; J1650; J3475; J7050 ×2; J7030; J2930; J2920 ×4; G0378 ×3

== ENCOUNTER 2021-02-26 15:22 | Emergency (ER) | payer OTHER ==
--- OUTSIDE RECORDS SUMMARY | 2021-02-26 15:25 | XMS REPORT | Continuity of Care Document ---
:1945 Author Organization [facility] t Address [address] [place] [address] Care Team Providers Name Role Phone ASHA Primary Care Physician Unavailable JAMIL COLLIER Attending Clinician Unavailable Nurse, Pob Immunization Attending Clinician Unavailable Jamil Collier DO Attending Clinician KRISTINA Attending Clinician Unavailable MD KRISTINA Y.H. Attending Clinician Unavailable Radiology Attending Clinician Unavailable RADIOLOGY Attending Clinician Unavailable Denisse CERON Attending Clinician Unavailable KRISTINA Admitting Clinician Unavailable MD KRISTINA Y.H. Admitting Clinician Unavailable Payers Payer Name Policy Type Policy Number Effective Date Expiration Date [facility] [id number] 2020 [facility] 00:00:00 PPO Problems This patient has no known problems. Allergies, Adverse Reactions, Alerts Allergy Allergy Status Severity Reaction(s) Onset Inactive Treating Comm ents Source Name Type Date Date Clinician NO KNOWN Drug Active Univers ALLERGIE Class ity of [facility] Social History Social Habit Start Date Stop Date Quantity Comments Source Exposure to Not sure [facility] SARS-CoV-2 (event) Medica l Branch Sex Assigned At [birth year] [facility] 00:00:00 00:00:00 Medical Branch Smoking Status Start Date Stop Date Source Unknown if ever smoked [facility] Medications This patient has no known medications. Immunizations Ordered Filled Immunization Date Status Comments Sour e Immunization Name Name SARS-COV-2 COVID-19 2020-12-09 Completed Unive rsity of MODERNA BOOSTER 00:00:00 [facility] ical VACCINE Branch SARS-COV-2 COVID-19 2020-04-18 Completed Unive rsity of MODERNA VACCINE 00:00:00 [facility] SARS-COV-2 COVID-19 2020-04-18 Completed Unive rsity of MODERNA VACCINE 00:00:00 [facility] SARS-COV-2 COVID-19 2020-03-21 Completed Unive rsity of MODERNA VACCINE 00:00:00 [facility] SARS-COV-2 COVID-19 2020-03-21 Completed Unive rsity of MODERNA VACCINE 00:00:00 [facility] Procedures Procedure Date / Time Performed Performing Clinician Sourc e SARS-COV-2 COVID-19 2020-12-09 15:58:44 Doctor Unassigned, No [facility] [place] VACCINE Name [facility] [place] BOOSTER,0.25ML,IM (MODERNA) XR HIPS 3 VW 2020-05-22 15:32:42 [facility] o f [facility] Encounters Start End Encounter Admission Attending Care Care Encounter Source Date/Time Date/Time Type Type Clinicians Facility Department ID 2020-12-09 2020-12-09 Outpatient R DEVON [facility] [id number] Univers 11:00:00 10:57:42 CARLO zayas [facility] 2020-12-09 2020-12-09 Imm/Inj Nurse, Adc Pob Immunization [facility] [id number] Univers 10:57:25 10:57:42 Visit Carlo Collier [id number] .10 chana [facility] [id number] Rudolph Kinney [id number] Ia dical nal [address] [place] [address] 2020-09-04 2020-09-04 Outpatient [facility] [id number] [place] 00:00:00 00:00:00 899 Method i 2020-07-21 2020-07-23 Inpatient [facility] [id number] [place] 00:00:00 00:00:00 EDWARD 262 Method i 2020-07-16 2020-07-16 Outpatient [facility] [id number] [place] 00:00:00 00:00:00 EDWARD 706 Method i 2020-07-09 2020-07-09 Outpatient [facility] [id number] [place] 00:00:00 00:00:00 EDWARD 058 Method i 2020-07-06 2020-07-06 Outpatient ACEVEDO, [facility] [id number] [place] 00:00:00 00:00:00 EDWARD [address] 2020-07-06 2020-07-06 Outpatient ACEVEDO, [facility] [id number] [place] 00:00:00 00:00:00 EDWARD [address] 2020-07-06 2020-07-06 Outpatient ACEVEDO, [facility] [id number] [place] 00:00:00 00:00:00 EDWARD [address] 2020-07-06 2020-07-06 Outpatient ACEVEDO, [facility] [id number] [place] 00:00:00 00:00:00 EDWARD 767 Method i 2020-07-02 2020-07-02 Outpatient ACEVEDO, [facility] [id number] [place] 00:00:00 00:00:00 EDWARD 533 Method i 2020-07-02 2020-07-02 Outpatient ACEVEDO, [facility] [id number] 00:00:00 00:00:00 EDWARD 437 Method i 2020-05-22 2020-05-22 [facility] [id number] 09:45:00 23:59:00 Encounter [place] [id number] [place] [id number] [place] [id number] [facility] 2020-05-22 2020-05-22 [facility] [id number] [facility] 09:45:00 23:59:00 Encounter [place] [id number] [facility] [id number] [facility] [id number] [address] 2020-05-22 2020-05-22 Outpatient R RADIOLOGY [facility] [id number] Univers [facility]:00[facility] 2020-03-21 2020-03-21 Outpatient O JIE, [facility] [id number] [facility] 13:20:00 13:20:00 KADEEM [facility] Results Test Description Test Time Test Comments Results Result Comments Source SARS-CoV-2 (COVID-19) RNA [Presence] in Respiratory sp ecimen by 2020-07-16 15:39:04 JIGNA with probe detection Test Item Value Reference Range Interpretation Comme nts SARS-CoV-2 (COVID-19) RNA [Presence] in Respiratory Not detected No t-Detected specimen by JIGNA with probe detection (test code = 54064-4) Whether patient is employed in a healthcare setting (test code = 80093-0) Whether the patient has symptoms related to condition of interest (test code = 01588-7) Patient was hospitalized because of this condition (test code = 53255-3) Whether the patient was admitted to intensive care unit (ICU) for condition of interest (test code = 06295-7) Whether patient resides in a congregate care setting (test code = 40454-9) SARS-CoV-2 (COVID-19) RNA [Presence] in Respiratory specimen by JIGNA with probe [id number] 17:08:57 Test Item Value Reference Range Interpretation Comments SARS-CoV-2 (COVID-19) RNA Not detected Not-Detected [Presence] in Respiratory specimen by JGINA with probe detection (test code = 81900-5) Whether patient is employed in a healthcare setting (test code = 20852-5) Whether the patient has symptoms related to condition of interest (test code = 14339-5) Patient was hospitalized because of this condition (test code = 07316-6) Whether the patient was admitted to intensive care unit (ICU) for condition of interest (test code = 59135-0) Whether patient resides in a congregate care setting (test code = 88232-2) XR HIPS 3 VW [id number] 20:46:16Impression: No evidence of acute fracture or dislocation. 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 ELECTRONICALLY SIGNED: ?Genaro Akbar MDBoard- Certified, [place] Board of RadiologyCAQ in NeuroradiologyTexas Radiology Associates, [email or web address] Patient: ALICIA Whitfield Date: 05/22/2020 10:00 AM : 1945MRN: [id number] Number: [id number] RL: [id number] TRA After Hours: [id number] ([phone]) Clinical indication: Bilateral hip pain. Ordering Physician: KENDALL IRVIN Technique: A frontal view of the pelvis and frontal and frog-leg lateralviews of each hip wereobtained. ?There are no prior pelvic or hip imagingstudies available for comparison. Findings: Thereis no evidence of an acute fracture or dislocationinvolving the bones of the pelvis with particular attention to each hipjoint. There is mild osteoarthritic change in both hip joints, morepronounced onthe left. ?There is no radiopaque soft tissue foreign body. [facility], Radiant Results Inft User - 05/22/2020 3:47 PM CDTClinical indication: Bilateral hip pain.Ordering Physician: KENDALL Callowayique:A frontal view of the pelvis and frontal and frog-leg lateralviews of each hip were obtained. Thereare no prior pelvic or hip imagingstudies available for comparison.Findings: There is no evidence ofan acute fracture or dislocationinvolving the bones of the pelvis with particular attention to each h ipjoint. There is mild osteoarthritic change in both hip joints, morepronounced on the left. 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
[2021-02-26] MEDS ORDERED: PHENYLEPHRINE 0.5% NOSE 15ML NAS ONE (15:32)
[2021-02-26] MEDS ORDERED: NA CHLORIDE 0.9% 1,000 ML ONE (16:23)
[2021-02-26 16:28] LABS: Absolute Lymphocytes (CBC) 4.1 K/uL (0.7-4.9); Hematocrit 35.2 % (36.0-45.0); Lymphocytes % 43.1 % (15.3-44.8); RBC Red Blood Cell Count 3.87 M/uL (3.86-4.86)
[2021-02-26 16:35] LABS: Protime INR 0.97
[2021-02-26] MEDS ORDERED: ONDANSETRON 4 MG/2 ML VIAL ONE (16:41)
[2021-02-26 16:49] LABS: ALT/SGPT 20 U/L (12-78); AST/SGOT 15 U/L (15-37); Albumin 3.5 g/dL (3.4-5.0); Alkaline Phosphatase 92 U/L (45-117); BUN Blood Urea Nitrogen 19 mg/dL (7-18); Bicarbonate 23 mmol/L (21-32); Bilirubin Direct < 0.1 mg/dL (0-0.2); Bilirubin Total 0.3 mg/dL (0.2-1.0); Glucose Level 130 mg/dL (74-106); Magnesium 2.1 mg/dL (1.8-2.4); NT PRO-BNP 492 pg/mL (<125); Protein, Total 6.8 g/dL (6.4-8.2); Sodium Level 141 mmol/L (136-145)
--- NOTE | 2021-02-26 16:56 | RAD REPORT ---
EXAM DESCRIPTION: Juani Single View02/26/2021 4:40 pm CLINICAL HISTORY: Confusion COMPARISON: July 2020 FINDINGS: The lungs appear clear of acute infiltrate. The heart is normal size IMPRESSION: No acute abnormalities displayed
--- NOTE | 2021-02-26 17:58 | ER ---
Nurse's Notes [facility] Name: Sherman Cook Age: 75 yrs Sex: Female : 1945 Arrival Date: 02/26/2021 Time: 15:23 Bed 16 Private MD: Diagnosis: Epistaxis Presentation: 02/26 15:45 Chief complaint: Patient states: was just watching tv when had a sudden onset of nose vg1 bleed. States 'it just wont stop bleeding'. Initial Sepsis Screen: Does the patient meet any 2 criteria? RR > 20 per min. Does the patient have a suspected source of infection? No. Patient's initial sepsis screen is negative. Risk Assessment: Do you want to hurt yourself or someone else? Patient reports no desire to harm self or others. Onset of symptoms was February 26, 2021. 15:45 Method Of Arrival: Ambulatory vg1 15:45 Acuity: TAYE 3 vg1 15:45 Coronavirus screen: Vaccine status: Patient reports receiving the 2nd dose of the covid vg1 vaccine. Client denies travel out of the [place] in the last 14 days. Ebola Screen: Patient negative for fever greater than or equal to 101.5 degrees Fahrenheit, and additional compatible Ebola Virus Disease symptoms. Triage Assessment: 15:25 General: Appears uncomfortable, Behavior is calm, cooperative. Pain: Complains of pain vg1 in nose. Neuro: Level of Consciousness is awake, alert, obeys commands, Oriented to person, place, time, situation. 15:25 EENT: Nares with bleeding noted continuous bleed with clots. vg1 Historical: - Allergies: 15:48 Codeine; vg1 15:48 PENICILLINS; vg1 - PMHx: 15:48 Arthritis; Bronchitis; COPD; Hypertensive disorder; Rheumatoid Arthritis; vg1 - PSHx: 15:48 lung surgery; vg1 - Immunization history:: Client reports receiving the 2nd dose of the Covid vaccine. - Social history:: Smoking status: Patient denies any tobacco usage or history of. Screenin:30 Abuse screen: Denies threats or abuse. Denies injuries from another. Nutritional jl7 screening: No deficits noted. Tuberculosis screening: No symptoms or risk factors identified. Fall Risk IV access (20 points). Total Lopez Fall Scale indicates No Risk (0-24 pts). Assessment: 15:30 Reassessment:. General: Appears uncomfortable, slender, Behavior is cooperative, cb5 anxious, restless. Pain: Denies pain. Neuro: Level of Consciousness is awake, alert, obeys commands, Oriented to person, place, time, situation, Appropriate for age Speech is normal, Cardiovascular: No deficits noted. Respiratory:. Respiratory: pt arrived to ER with epistaxis, coughing up large red blood clots, immediately orally suctioned pt. Pt sitting in upright position on stretcher. Reports nose started bleeding approx an hour ago. P.A. a bedside placing rhino rocket to right nare. Shortly after, pt became lethargic, diaphoretic, had L.O.C for approx 15-30 sec, airway was secured. Pt easily awakened. was placed on front desk monitor. GI: No deficits noted. : No deficits noted. EENT: Nares with bleeding noted see resp assessment.. Derm: No deficits noted. Musculoskeletal: No deficits noted. 17:17 Reassessment: pt in no acute distress at this time, remains on the front desk monitor, cb5 safety precautions are in effect. 18:28 Reassessment: Pt discharged and while ambulating out fo the ER pt became dizzy and jl7 lightheaded. Sat pt in wheelchair and transported back to ER room 16, BP 113/54, had pt stand and pt reported feeling lightheaded, BP 96/52. Dr. Chaudhary notified, see MAR for orders. 19:20 General: Appears in no apparent distress. Behavior is cooperative. Pain: Denies pain. mk Neuro: Level of Consciousness is awake, alert, obeys commands, Oriented to person, place, time, situation, Ebd Special Education Teacher are equal bilaterally Gait is steady, Speech is normal, Facial symmetry appears normal. Cardiovascular: Heart tones S1 S2 Capillary refill < 3 seconds JVD is absent Patient's skin is warm and dry. Respiratory: Airway is patent Trachea midline Respiratory effort is even, unlabored, Respiratory pattern is regular, symmetrical, Breath sounds are clear. GI: Abdomen is flat, non-distended. : No signs and/or symptoms were reported regarding the genitourinary system. EENT: Nares with bleeding noted nasal rocket in place, epistaxis decreased. Derm: Skin is intact, is healthy with good turgor, Skin is dry, Skin is pink, warm \T\ dry. Skin temperature is warm. Musculoskeletal: Circulation, motion, and sensation intact. Capillary refill < 3 seconds, fingers. toes. Range of motion: intact in all extremities. 20:30 Reassessment: pt walked to the restroom independently, no dizziness or lightheadedness. sm5 21:21 Reassessment: Patient and/or family updated on plan of care and expected duration. Pain mk level reassessed. Patient is alert, oriented x 3, equal unlabored respirations, skin warm/dry/pink. Patient states feeling better. Patient states symptoms have improved. Vital Signs: 15:35 BP 126 / 59; Pulse 68; Resp 16; Pain 0/10; cb5 15:45 BP 126 / 59; Pulse 75; Resp 30; Temp 97.6; Pulse Ox 96% ; Weight 62.6 kg; Height 5 ft. vg1 2 in. (157.48 cm); 15:45 BP 135 / 85; Pulse 77; Resp 16; Pulse Ox 98% ; Pain 0/10; cb5 16:00 BP 133 / 66; Pulse 76; Resp 16; Pain 0/10; cb5 16:15 BP 79 / 44; Pulse 70; Resp 16; Pain 0/10; cb5 16:17 BP 99 / 51; Pulse 70; Resp 16; cb5 16:21 BP 118 / 56; Pulse 78; Resp 16; cb5 16:25 BP 137 / 54; Pulse 70; Resp 16; Pain 0/10; cb5 16:30 BP 112 / 63; Pulse 72; Resp 16; cb5 16:42 BP 112 / 63; Pulse 72; Resp 18; Pulse Ox 99% on R/A; ld1 16:45 BP 151 / 63; Pulse 80; Pain 0/10; cb5 17:00 BP 136 / 59; Pulse 76; Resp 16; Pulse Ox 98% ; cb5 19:37 BP 144 / 55 Supine; Pulse 81; Resp 18; Pulse Ox 98% on R/A; mk 19:40 BP 147 / 61 Sitting; Pulse 84; Resp 18; Pulse Ox 98% on R/A; mk 19:43 BP 143 / 59 Standing; Pulse 92; Resp 18; Pulse Ox 98% on R/A; mk 20:40 BP 156 / 71; Pulse 70; Resp 18; Pulse Ox 99% on R/A; mk 21:34 BP 142 / 61; Pulse 74; Resp 18; Pulse Ox 98% on R/A; mk 15:45 Body Mass Index 25.24 (62.60 kg, 157.48 cm) vg1 Anastacia Coma Score: 19:37 Eye Response: spontaneous(4). Verbal Response: oriented(5). Motor Response: obeys mk commands(6). Total: 15. 19:40 Eye Response: spontaneous(4). Verbal Response: oriented(5). Motor Response: obeys mk commands(6). Total: 15. 19:43 Eye Response: spontaneous(4). Verbal Response: oriented(5). Motor Response: obeys mk commands(6). Total: 15. 20:40 Eye Response: spontaneous(4). Verbal Response: oriented(5). Motor Response: obeys mk commands(6). Total: 15. 21:34 Eye Response: spontaneous(4). Verbal Response: oriented(5). Motor Response: obeys mk commands(6). Total: 15. ED Course: 15:23 Patient arrived in ED. ds1 15:25 Ian Padilla PA is PHCP. jmm 15:25 Blaise Chaudhary MD is Attending Physician. jmm 15:25 Arm band placed on. vg1 15:45 Inserted saline lock: 18 gauge in right antecubital area, using aseptic technique. vg1 15:46 Triage completed. vg1 15:52 Angelina Sandra, RN is Primary Nurse. cb5 15:53 Basic Metabolic Panel Sent. cb5 15:53 CBC with Diff Sent. cb5 15:53 LFT's Sent. cb5 15:53 Magnesium Sent. cb5 15:53 NT PRO-BNP Sent. cb5 15:53 PT-INR Sent. cb5 15:53 Troponin HS Sent. cb5 16:00 Patient has correct armband on for positive identification. Placed in gown. Bed in low jl7 position. Call light in reach. Side rails up X 1. hall monitor on. Pulse ox on. NIBP on. 16:40 XRAY Chest (1 view) In Process Unspecified. EDMS 17:56 Ariane Rico MD is Referral Physician. jmm 18:15 No provider procedures requiring assistance completed. IV discontinued, intact, jl7 bleeding controlled, No redness/swelling at site. Pressure dressing applied. 18:26 PHCP role handed off by Ian Padilla PA jl7 19:06 Report given to Sumi Hoyt cb5 19:10 Pulse ox on. NIBP on. mk 19:10 Inserted saline lock: 20 gauge in right antecubital area, using aseptic technique. mk 19:20 Awaiting lab results, Awaiting re-evaluation by ER provider, Awaiting: infusion of mk 500cc bolus and reassess labs. 20:49 CBC with Diff Sent. mk 21:15 CBC with Diff Sent. mk 21:36 Primary Nurse role handed off by Angelina Sandra, SUSANA mk 21:36 Nicole Aly, SUSANA is Primary Nurse. mk 21:39 IV discontinued, intact, bleeding controlled, No redness/swelling at site. Pressure mk dressing applied. Administered Medications: 16:38 Drug: NS 0.9% 1000 ml Route: IV; Rate: 1 bolus; Site: right antecubital; ld1 02/27 04:10 Follow up: Response: No adverse reaction; IV Status: Completed infusion; IV Intake: mk 500ml 02/26 16:41 Drug: Zofran (Ondansetron) 4 mg Route: IVP; Site: left antecubital; ld1 02/27 04:10 Follow up: Response: No adverse reaction 02/26 19:05 Drug: NS 0.9% 500 ml Route: IV; Rate: 1 bolus; Site: left antecubital; cb5 20:40 Follow up: Response: No adverse reaction; IV Status: Completed infusion; IV Intake: mk 500ml 20:49 Drug: Acetaminophen 650 mg Route: PO; mk Intake: 20:40 IV: 500ml; Total: 500ml. 02/27 04:10 IV: 500ml; Total: 1000ml. mk Outcome: 02/26 17:57 Discharge ordered by . simone 18:15 Discharged to home ambulatory, with family. jl7 18:15 Condition: stable 18:15 Discharge instructions given to patient, family, Instructed on discharge instructions, follow up and referral plans. medication usage, Demonstrated understanding of instructions, follow-up care, medications, Prescriptions given X 1. 18:15 Patient left the ED. jl7 21:36 Patient left the ED. mk Signatures: Dispatcher [employer] EDMS Ian Padilla PA PA jmm Sanford, Demi ds1 Bushra Galeas, RN RN jl7 Eden Liu RN RN vg1 Lakisha Srivastava, RN RN ld1 Cristina Zheng, RN RN sm5 Nicole Aly, RN RN Angelina Alexander, RN RN cb5 Corrections: (The following items were deleted from the chart) 15:48 15:45 BP 126 / 59; Pulse 75bpm; Resp 30bpm; Pulse Ox 96%; Temp 97.6F; vg1 vg1 15:50 15:48 Immunization history: Client reports receiving the 2nd dose of the Covid vaccine, vg1 1 02/27 04:02/26 19:37 BP 144 / 55; Pulse 81bpm; Resp 18bpm; Pulse Ox 98% RA; [facility] 02/27 04:02/26 19:40 BP 147 / 61; Pulse 84bpm; Resp 18bpm; Pulse Ox 98% RA; [facility] 02/27 04:02/26 19:43 BP 143 / 59; Pulse 92bpm; Resp 18bpm; Pulse Ox 98% RA; [facility]
--- NOTE | 2021-02-26 17:58 | EDPHYS ---
Physician Documentation [facility] Name: Sherman Cook Age: 75 yrs Sex: Female : 1945 Arrival Date: 02/26/2021 Time: 15:23 Bed 16 Private MD: ED Physician Blaise Chaudhary HPI: 02/26 15:39 This 75 yrs old Female presents to ER via Ambulatory with complaints of Nose Bleed. jmm 15:39 The patient presents with a nose bleed, that is apparently anterior, from the right jmm nare. Onset: The symptoms/episode began/occurred acutely, just prior to arrival. Modifying factors: The symptoms are alleviated by nothing. the symptoms are aggravated by nothing. Associated signs and symptoms: Loss of consciousness: the patient experienced no loss of consciousness, Pertinent positives: bleeding, Pertinent negatives: chest pain, shortness of breath. The patient has not experienced similar symptoms in the past. Historical: - Allergies: 15:48 Codeine; vg1 15:48 PENICILLINS; vg1 - PMHx: 15:48 Arthritis; Bronchitis; COPD; Hypertensive disorder; Rheumatoid Arthritis; vg1 - PSHx: 15:48 lung surgery; vg1 - Immunization history:: Client reports receiving the 2nd dose of the Covid vaccine. - Social history:: Smoking status: Patient denies any tobacco usage or history of. ROS: 15:39 Constitutional: Negative for fever, chills, and weight loss, Cardiovascular: Negative jmm for chest pain, palpitations, and edema, Respiratory: Negative for shortness of breath, cough, wheezing, and pleuritic chest pain. 15:39 ENT: Positive for nose bleed. 15:39 All other systems are negative. Exam: 15:39 Constitutional: This is a well developed, well nourished patient who is awake, alert, jmm and in no acute distress. Head/Face: atraumatic. Eyes: EOMI, no conjunctival erythema appreciated 15:39 Neck: Trachea midline, Supple Chest/axilla: Normal chest wall appearance and motion. Cardiovascular: Regular rate and rhythm. No edema appreciated Respiratory: Normal respirations, no respiratory distress appreciated Abdomen/GI: Non distended, soft Back: Normal ROM Skin: General appearance color normal MS/ Extremity: Moves all extremities, no obvious deformities appreciated, no edema noted to the lower extremities Neuro: Awake and alert, normal gait Psych: Behavior is normal, Mood is normal, Patient is cooperative and pleasant 15:39 ENT: Nose: bleeding, is seen from the right nare, and is profuse. Vital Signs: 15:35 BP 126 / 59; Pulse 68; Resp 16; Pain 0/10; cb5 15:45 BP 126 / 59; Pulse 75; Resp 30; Temp 97.6; Pulse Ox 96% ; Weight 62.6 kg; Height 5 ft. vg1 2 in. (157.48 cm); 15:45 BP 135 / 85; Pulse 77; Resp 16; Pulse Ox 98% ; Pain 0/10; cb5 16:00 BP 133 / 66; Pulse 76; Resp 16; Pain 0/10; cb5 16:15 BP 79 / 44; Pulse 70; Resp 16; Pain 0/10; cb5 16:17 BP 99 / 51; Pulse 70; Resp 16; cb5 16:21 BP 118 / 56; Pulse 78; Resp 16; cb5 16:25 BP 137 / 54; Pulse 70; Resp 16; Pain 0/10; cb5 16:30 BP 112 / 63; Pulse 72; Resp 16; cb5 16:42 BP 112 / 63; Pulse 72; Resp 18; Pulse Ox 99% on R/A; ld1 16:45 BP 151 / 63; Pulse 80; Pain 0/10; cb5 17:00 BP 136 / 59; Pulse 76; Resp 16; Pulse Ox 98% ; cb5 19:37 BP 144 / 55 Supine; Pulse 81; Resp 18; Pulse Ox 98% on R/A; mk 19:40 BP 147 / 61 Sitting; Pulse 84; Resp 18; Pulse Ox 98% on R/A; mk 19:43 BP 143 / 59 Standing; Pulse 92; Resp 18; Pulse Ox 98% on R/A; mk 20:40 BP 156 / 71; Pulse 70; Resp 18; Pulse Ox 99% on R/A; mk 21:34 BP 142 / 61; Pulse 74; Resp 18; Pulse Ox 98% on R/A; mk 15:45 Body Mass Index 25.24 (62.60 kg, 157.48 cm) vg1 Anastacia Coma Score: 19:37 Eye Response: spontaneous(4). Verbal Response: oriented(5). Motor Response: obeys mk commands(6). Total: 15. 19:40 Eye Response: spontaneous(4). Verbal Response: oriented(5). Motor Response: obeys mk commands(6). Total: 15. 19:43 Eye Response: spontaneous(4). Verbal Response: oriented(5). Motor Response: obeys mk commands(6). Total: 15. 20:40 Eye Response: spontaneous(4). Verbal Response: oriented(5). Motor Response: obeys mk commands(6). Total: 15. 21:34 Eye Response: spontaneous(4). Verbal Response: oriented(5). Motor Response: obeys mk commands(6). Total: 15. Procedures: 17:52 Epistaxis treatment: Copious amount of bleeding noted from right nare. Treated using [facility] Oxymetazoline sprays, rhino rocket, Bleeding stopped. MDM: 15:39 Patient medically screened. [facility] 17:52 Data reviewed: vital signs, nurses notes. Counseling: I had a detailed discussion with [facility] the patient and/or guardian regarding: the historical points, exam findings, and any diagnostic results supporting the discharge/admit diagnosis, lab results, radiology results, the need for outpatient follow up, to return to the emergency department if symptoms worsen or persist or if there are any questions or concerns that arise at home. ED course: After administration of the Rhino Rocket. The patient developed a blank stare and became hypotensive with some diaphoresis. Patient was resuscitated with normal saline, blood was drawn. The patient quickly responded and became alert and responded to questions. Patient was still little nauseous afterwards. Patient was seen and able to tolerate p.o. and stated that she felt better but still was a little tired. We observe the patient for 2 hours after this episode. Bleeding is still stopped in the the right naris. Patient advised to follow-up with ENT otherwise given strict return precautions. Patient understood and agrees plan of care.. 02/26 15:40 Order name: Basic Metabolic Panel; Complete Time: 17:01 [facility] 02/26 15:40 Order name: CBC with Diff; Complete Time: 16:44 [facility] 02/26 15:40 Order name: LFT's; Complete Time: 17: [facility] 02/26 15:40 Order name: Magnesium; Complete Time: 17: [facility] 02/26 15:40 Order name: NT PRO-BNP; Complete Time: 17:01 [facility] 02/26 15:40 Order name: PT-INR; Complete Time: 16:37 [facility] 02/26 15:40 Order name: Troponin HS; Complete Time: 17:01 [facility] 02/26 15:40 Order name: XRAY Chest (1 view); Complete Time: 17:01 [facility] 02/26 15:40 Order name: Type And Screen; Complete Time: 17:07 [facility] 02/26 19:21 Order name: ABO/RH no charge; Complete Time: 19:34 [facility] 02/26 20:06 Order name: CBC with Diff; Complete Time: 21:23 [facility] 02/26 15:40 Order name: EKG; Complete Time: 15:41 [facility] 02/26 15:40 Order name: Cardiac monitoring; Complete Time: 15:52 [facility] 02/26 15:40 Order name: EKG - Nurse/Tech; Complete Time: 15:53 [facility] 02/26 15:40 Order name: IV Saline Lock; Complete Time: 15:52 [facility] 02/26 15:40 Order name: Labs collected and sent; Complete Time: 15:52 [facility] 02/26 15:40 Order name: O2 Per Protocol; Complete Time: 15:53 [facility] 02/26 15:40 Order name: O2 Sat Monitoring; Complete Time: 15:53 [facility] Administered Medications: 16:38 Drug: NS 0.9% 1000 ml Route: IV; Rate: 1 bolus; Site: right antecubital; 1 02/27 04:10 Follow up: Response: No adverse reaction; IV Status: Completed infusion; IV Intake: mk 500ml 02/26 16:41 Drug: Zofran (Ondansetron) 4 mg Route: IVP; Site: left antecubital; 1 02/27 04:10 Follow up: Response: No adverse reaction 02/26 19:05 Drug: NS 0.9% 500 ml Route: IV; Rate: 1 bolus; Site: left antecubital; 5 20:40 Follow up: Response: No adverse reaction; IV Status: Completed infusion; IV Intake: mk 500ml 20:49 Drug: Acetaminophen 650 mg Route: PO; Disposition: 02/27 07:45 Co-signature as Attending Physician, Blaise Chaudhary MD I agree with the assessment and kdr plan of care. Disposition Summary: 02/26/21 17:57 Discharge Ordered Location: Home [facility] Condition: Stable [facility] Diagnosis - Epistaxis [facility] Followup: [facility] - With: Ariane Rico MD - When: 2 - 3 days - Reason: Recheck today's complaints, Continuance of care, Re-evaluation by your physician Discharge Instructions: - Discharge Summary Sheet jm - Nosebleed, Adult [facility] Forms: - Medication Reconciliation Form [facility] - Thank You Letter [facility] - Antibiotic Education [facility] - Prescription Opioid Use [facility] Prescriptions: - Clindamycin HCl 300 mg Oral Capsule - take 1 capsule by ORAL route every 6 hours for 10 days; 40 capsule; Refills: 0, [facility] Product Selection Permitted Signatures: Dispatcher [employer] EDMS Blaise Chaudhary MD MD kdr Mickail, Joel, PA PA jmm Garcia, Victoria, RN RN vg1 Charles Marie MD MD mh7 Lakisha Srivastava RN RN ld1 Cristina Zheng RN RN 5 Nicole Aly RN RN mk Boman, Colleen, RN RN cb5 Corrections: (The following items were deleted from the chart) 02/26 15:50 15:48 Immunization history: Client reports receiving the 2nd dose of the Covid vaccine, vg1 vg1
[2021-02-26 18:33] VITALS: TEMP 97.6
[2021-02-26] MEDS ORDERED: NA CHLORIDE 0.9% 500 ML ONE (18:33)
[2021-02-26 18:48] VITALS: O2SAT 98
[2021-02-26] MEDS ORDERED: ACETAMINOPHEN 325 MG TABLET ONE (20:19)
[2021-02-26 21:09] LABS: Absolute Lymphocytes (CBC) 1.4 K/uL (0.7-4.9); Hematocrit 32.6 % (36.0-45.0); MPV 9.3 fL (7.6-11.3); RBC Red Blood Cell Count 3.52 M/uL (3.86-4.86)
[2021-02-26 22:03] VITALS: BP 143/59
== END 2021-02-26 21:36 | disposition home or self-care (01) ==
LOC: ER 15:22
DX: R04.0 Epistaxis (principal); I10 Essential (primary) hypertension; Z88.0 Allergy status to penicillin; Z88.5 Allergy status to narcotic agent
CPT/HCPCS: 30901 ×2; 96361; 93005; 85025 ×2; 80048; 36415; 86900; 83735; 86850; 85610; 86901; 80076; 84484; 83880; 71045; 96374; 99284; J7040; J7030; J2405

== ENCOUNTER 2021-02-28 10:02 | Emergency (ER) | payer OTHER ==
--- OUTSIDE RECORDS SUMMARY | 2021-02-28 10:05 | XMS REPORT | Continuity of Care Document ---
:1945 Author Organization [facility] t Address [address] [place] [address] Care Team Providers Name Role Phone ASHA [...] Type Policy Number Effective Date Expiration Date [facility] [id number] 2020 [facility] 00:00:00 PPO Problems This patient has no known problems. Allergies, Adverse Reactions, Alerts Allergy Allergy Status Severity Reaction(s) Onset Inactive Treating Comm ents Source Name Type Date Date Clinician NO KNOWN Drug Active Univers ALLERGIE Class ity of S [facility] Social History Social Habit Start Date Stop Date Quantity Comments Source Exposure to Not sure [facility] SARS-CoV-2 (event) Medica l Branch Sex Assigned At [birth year] [facility] 00:00:00 00:00:00 Medical Branch Smoking Status Start Date Stop Date Source Unknown if ever smoked [facility] Medications This patient has no known medications. Immunizations Ordered Filled Immunization Date Status Comments Sour e Immunization Name Name SARS-COV-2 COVID-19 2020-12-09 Completed Unive rsity of MODERNA BOOSTER 00:00:00 [facility] ical VACCINE Branch SARS-COV-2 COVID-19 2020-04-18 Completed Unive rsity of MODERNA VACCINE 00:00:00 [facility] SARS-COV-2 COVID-19 2020-04-18 Completed Unive rsity of MODERNA VACCINE 00:00:00 [facility] Branch SARS-COV-2 COVID-19 2020-03-21 Completed Unive rsity of MODERNA VACCINE 00:00:00 [facility] SARS-COV-2 COVID-19 2020-03-21 Completed Unive rsity of MODERNA VACCINE 00:00:00 [facility] Procedures Procedure Date / Time Performed Performing Clinician Sourc e SARS-COV-2 COVID-19 2020-12-09 15:58:44 Doctor Unassigned, No [facility] [place] VACCINE Name Medical [place] BOOSTER,0.25ML,IM (MODERNA) XR HIPS 3 VW 2020-05-22 15:32:42 [facility] Encounters Start End Encounter Admission Attending Care Care Encounter Source Date/Time Date/Time Type Type Clinicians Facility Department ID 2020-12-09 2020-12-09 Outpatient R DEVON [facility] [id number] Univers 11:00:00 10:57:42 CARLO zayas [facility] 2020-12-09 2020-12-09 Imm/Inj Nurse, Adc Pob Immunization [facility] [id number] Univers 10:57:25 10:57:42 Visit Carlo Collier [id number] .10 chana [facility] [id number] Rudolph Kinney [id number] Oh dical nal [address] [place] [address] 2020-09-04 2020-09-04 Outpatient [facility] [id number] [place] 00:00:00 00:00:00 899 Method i 2020-07-21 2020-07-23 Inpatient [facility] 021 [id number] [address] [place] 00:00:00 00:00:00 EDWARD 262 Method i 2020-07-16 2020-07-16 Outpatient [facility] [id number] [address] [place] 00:00:00 00:00:00 EDWARD 706 Method i 2020-07-09 2020-07-09 Outpatient [facility] [id number] 9[address] [place] 00:00:00 00:00:00 EDWARD 058 Method i 2020-07-06 2020-07-06 Outpatient ACEVEDO, [facility] [id number] [address] [place] 00:00:00 00:00:00 EDWARD [address] 2020-07-06 2020-07-06 Outpatient ACEVEDO, [facility] [id number] 9[address] [place] 00:00:00 00:00:00 EDWARD [address] 2020-07-06 2020-07-06 Outpatient ACEVEDO, [facility] [id number] 9[address] [place] 00:00:00 00:00:00 EDWARD [address] 2020-07-06 2020-07-06 Outpatient ACEVEDO, [facility] [id number] [address] [place] 00:00:00 00:00:00 EDWARD 767 Method i 2020-07-02 2020-07-02 Outpatient ACEVEDO, [facility] [id number] [address] [place] 00:00:00 00:00:00 EDWARD 533 Method i 2020-07-02 2020-07-02 Outpatient ACEVEDO, [facility] [id number] [address] [place] 00:00:00 00:00:00 EDWARD 437 Method i 2020-05-22 2020-05-22 [facility] Radiology [facility] [id number] 09:45:00 23:59:00 Encounter [place] [id number] [place] [id number] [place] [id number] [facility] 2020-05-22 2020-05-22 [facility] Radiology [facility] [id number] [facility] 09:45:00 23:59:00 Encounter [place] [id number] [facility] [id number] [facility] [id number] [address] 2020-05-22 2020-05-22 Outpatient R RADIOLOGY [facility] [id number] Univers [facility]:00[facility]00 [facility] 2020-03-21 2020-03-21 Outpatient O JIE, [facility] [id number] [facility] 13:20:00 13:20:00 KADEEM [facility] Results Test Description Test Time Test Comments Results Result Comments Source SARS-CoV-2 (COVID-19) RNA [Presence] in Respiratory sp ecimen by 2020-07-16 15:39:04 JIGNA with probe detection Test Item Value Reference Range Interpretation Comme nts SARS-CoV-2 (COVID-19) RNA [Presence] in Respiratory Not detected No t-Detected specimen by JIGNA with probe detection (test code = 04962-0) Whether patient is employed in a healthcare setting (test code = 36015-5) Whether the patient has symptoms related to condition of interest (test code = 20012-5) Patient was hospitalized because of this condition (test code = 95711-5) Whether the patient was admitted to intensive care unit (ICU) for condition of interest (test code = 94387-4) Whether patient resides in a congregate care setting (test code = 83400-1) SARS-CoV-2 (COVID-19) RNA [Presence] in Respiratory specimen by JIGNA with probe [id number] 17:08:57 Test Item Value Reference Range Interpretation Comments SARS-CoV-2 (COVID-19) RNA Not detected Not-Detected [Presence] in Respiratory specimen by JIGNA with probe detection (test code = 32921-9) Whether patient is employed in a healthcare setting (test code = 52358-5) Whether the patient has symptoms related to condition of interest (test code = 22957-4) Patient was hospitalized because of this condition (test code = 31882-6) Whether the patient was admitted to intensive care unit (ICU) for condition of interest (test code = 52775-0) Whether patient resides in a congregate care setting (test code = 67709-2) XR HIPS 3 VW [id number] 20:46:16Impression: No evidence of acute fracture or dislocation. 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 ELECTRONICALLY SIGNED: ?Genaro Akbar MDBoard- Certified, [place] Board of RadiologyCAQ in NeuroradiologyTexas Radiology Associates, [email or web address] Patient: ALICIA Whitfield Date: 05/22/2020 10:00 AM : 1945MRN: [id number] Number: [id number] RL: [id number] TRA After Hours: [id number] ([phone]) Clinical indication: Bilateral hip pain. Ordering Physician: [...] is no radiopaque soft tissue foreign body. [facility], Radiant Results Inft User - 05/22/2020 [...] pronounced onthe left.ELECTRONICALLY SIGNED: Genaro Akbar MDBoard-Certified, [place] Board of RadiologyCAQ in NeuroradiologyTexas Radiology Associates, [email or web address]: ALICIA ROJASXExam Date: 05/22/2020 10:00 AM : 1945MRN: [id number] Number: [id number]: [id number] After Hours: [id number] ([phone]) [facility]
[2021-02-28] MEDS ORDERED: PHENYLEPHRINE 0.5% NOSE 15ML NAS ONE (10:29)
[2021-02-28] MEDS ORDERED: NA CHLORIDE 0.9% 1,000 ML ONE (10:41)
[2021-02-28 11:12] LABS: Absolute Lymphocytes (CBC) 2.5 K/uL (0.7-4.9); Lymphocytes % 32.6 % (15.3-44.8); MPV 9.1 fL (7.6-11.3); RBC Red Blood Cell Count 3.49 M/uL (3.86-4.86)
[2021-02-28 11:14] LABS: Protime INR 1.01
[2021-02-28 11:27] LABS: ALT/SGPT 18 U/L (12-78); AST/SGOT 13 U/L (15-37); Albumin 3.3 g/dL (3.4-5.0); Alkaline Phosphatase 83 U/L (45-117); BUN Blood Urea Nitrogen 14 mg/dL (7-18); Bicarbonate 25 mmol/L (21-32); Bilirubin Direct < 0.1 mg/dL (0-0.2); Bilirubin Total 0.3 mg/dL (0.2-1.0); Glucose Level 138 mg/dL (74-106); Magnesium 2.1 mg/dL (1.8-2.4); NT PRO-BNP 630 pg/mL (<125); Potassium 3.6 mmol/L (3.5-5.1); Protein, Total 6.6 g/dL (6.4-8.2); Sodium Level 141 mmol/L (136-145)
--- NOTE | 2021-02-28 11:47 | RAD REPORT ---
EXAM DESCRIPTION: RAD - Chest Single View - 02/28/2021 11:24 am CLINICAL HISTORY: Near syncope Chest pain. COMPARISON: Chest Single View dated 02/26/2021; Chest Single View dated 08/12/2020; Chest Single View dated 03/18/2019; Chest Pa And Lat (2 Views) dated 09/07/2015 FINDINGS: Portable technique limits examination quality. The lungs are grossly clear. The heart is normal in size. No displaced fractures. IMPRESSION: No acute intrathoracic process suspected.
--- NOTE | 2021-02-28 12:11 | EDPHYS ---
Physician Documentation [facility] Name: Sherman Cook Age: 75 yrs Sex: Female : 1945 Arrival Date: 02/28/2021 Time: 10:02 Bed 25 Private MD: ED Physician Blaise Chaudhary HPI: 02/28 10:49 This 75 yrs old Female presents to ER via Ambulatory with complaints of Nose Bleed. pm1 10:49 The patient presents with a nose bleed, left nare. Onset: The symptoms/episode pm1 began/occurred today. Modifying factors: The symptoms are alleviated by nothing. the symptoms are aggravated by bending over. Associated signs and symptoms: Loss of consciousness: the patient experienced no loss of consciousness, Pertinent negatives: chest pain, ear ache, fever, shortness of breath. Severity of symptoms: in the emergency department the symptoms are unchanged. The patient has experienced a previous episode, approximately 2 days ago, Right nare bleeding that was resolved with rhin rocket. The patient has been recently seen at the [facility] Emergency Department, for similar complaints two days ago. Historical: - Allergies: 10:12 Codeine; iw 10:12 PENICILLINS; iw - PMHx: 10:12 Arthritis; Bronchitis; COPD; Hypertensive disorder; Rheumatoid Arthritis; iw - PSHx: 10:12 lung surgery; iw - Immunization history:: Adult Immunizations up to date. - Social history:: Smoking status: Patient denies any tobacco usage or history of. Patient uses. ROS: 10:49 Constitutional: Negative for fever, chills, and weight loss, Eyes: Negative for injury, pm1 pain, redness, and discharge. 10:49 Cardiovascular: Negative for chest pain, palpitations, and edema, Respiratory: Negative for shortness of breath, cough, wheezing, and pleuritic chest pain, MS/Extremity: Negative for injury and deformity, Skin: Negative for injury, rash, and discoloration, Neuro: Negative for headache, weakness, numbness, tingling, and seizure. 10:49 ENT: Positive for nose bleed, Negative for ear pain, sore throat. 10:49 All other systems are negative. Exam: 10:49 Constitutional: This is a well developed, well nourished patient who is awake, alert, pm1 and in no acute distress. Head/Face: Normocephalic, atraumatic. 10:49 ENT: Nose: bleeding, is seen from the left nare, and is minimal. 10:49 Cardiovascular: Exam negative for acute changes, Rate: normal, Rhythm: regular, Pulses: no pulse deficits are appreciated. 10:49 Cardiovascular: Heart sounds: normal, normal S1and S2. 10:49 Respiratory: Exam negative for acute changes, respiratory distress, shortness of breath, Breath sounds: are clear throughout. 10:49 Skin: Exam negative for Appearance: normal except for affected area. 10:49 Neuro: Exam negative for acute changes, Orientation: is normal, Motor: is normal, moves all fours. 11:33 ENT: Nose: External nose: no obvious acute abnormality, Nasal mucosa: Dried blood. nose pm1 bleed has resolved. Vital Signs: 10:09 BP 121 / 64; Pulse 116; Resp 16; Temp 98.7; Pulse Ox 100% ; Weight 62.6 kg; Height 5 iw ft. 2 in. (157.48 cm); Pain 0/10; 10:40 BP 65 / 33; Pulse 80; Resp 16; Pulse Ox 100% on R/A; ab2 10:48 BP 87 / 48; Pulse 74; Resp 16; Pulse Ox 97% on R/A; ab2 10:49 BP 103 / 55; Pulse 70; Resp 16; Pulse Ox 100% on R/A; ab2 12:05 BP 119 / 61; Pulse 74; Resp 16; Pulse Ox 100% on R/A; Pain 2/10; ab2 10:09 Body Mass Index 25.24 (62.60 kg, 157.48 cm) iw MDM: 10:44 Patient medically screened. pm1 12:00 Data reviewed: vital signs. Data interpreted: Pulse oximetry: on room air is 100 %. pm1 Interpretation: normal. Counseling: I had a detailed discussion with the patient and/or guardian regarding: the historical points, exam findings, and any diagnostic results supporting the discharge/admit diagnosis, lab results, radiology results, the need for outpatient follow up, an ENT specialist, to return to the emergency department if symptoms worsen or persist or if there are any questions or concerns that arise at home. 12:13 ED course: After removal of Rhino Rocket the patient felt faint and had a possible pm1 vasovagal response, with hypotension and some diaphoresis. Patient was administered IV fluids and a cardiac work-up was ordered. The patient responded quickly to IV fluids administered and was alert and oriented. Patient feels better after observation period and fluids and wants to go home. 13:14 ED course: Patient with right nare bleeding just as she was about to leave the ER room pm1 one hour ago. Neal-synephrine applied directly to the right nare, anterior area of bleeding with a sterile q-tip and pressure applied with nose clamp. Patient's bleeding resolved with treatment and patient discharged home. 02/28 10:49 Order name: Basic Metabolic Panel; Complete Time: 11: pm02/28 10:49 Order name: CBC with Diff; Complete Time: : pm02/28 10:49 Order name: LFT's; Complete Time: : pm02/28 10:49 Order name: Magnesium; Complete Time: 11: pm02/28 10:49 Order name: NT PRO-BNP; Complete Time: :02/28 10:49 Order name: PT-INR; Complete Time: 11: pm02/28 10:49 Order name: Troponin HS; Complete Time: 11: pm02/28 10:49 Order name: XRAY Chest (1 view); Complete Time: 12:00 pm02/28 10:49 Order name: EKG; Complete Time: 10:50 pm02/28 10:49 Order name: Cardiac monitoring; Complete Time: 10:52 pm02/28 10:49 Order name: EKG - Nurse/Tech; Complete Time: 11:03 pm02/28 10:49 Order name: IV Saline Lock; Complete Time: 10:52 pm02/28 10:49 Order name: Labs collected and sent; Complete Time: 10:52 pm02/28 10:49 Order name: O2 Per Protocol; Complete Time: 10: pm02/28 10:49 Order name: O2 Sat Monitoring; Complete Time: 10:52 pm1 Administered Medications: 10:28 Drug: Neal-Synephrine (phenylephrine) [place] 0.5 % 1 sprays Route: Intranasal; Site: both ab2 nares; 12:42 Follow up: Response: No adverse reaction ab2 10:40 Drug: NS 0.9% 1000 ml Route: IV; Rate: 1000 ml; Site: left antecubital; ab2 12:42 Follow up: Response: No adverse reaction; IV Status: Completed infusion ab2 Disposition: 13:22 Co-signature as Attending Physician, Blaise Chaudhary MD I agree with the assessment and kdr plan of care. Disposition Summary: 02/28/21 12:10 Discharge Ordered Location: Home pm1 Problem: new pm1 Symptoms: have improved pm1 Condition: Stable pm1 Diagnosis - Epistaxis pm1 Followup: pm1 - With: Emergency Department - When: As needed - Reason: Worsening of condition Followup: pm1 - With: Ariane Rico MD - When: 2 - 3 days - Reason: Recheck today's complaints, Continuance of care, Re-evaluation by your physician Discharge Instructions: - Discharge Summary Sheet pm1 - Nosebleed, Adult pm1 Forms: - Medication Reconciliation Form pm1 - Thank You Letter pm1 - Antibiotic Education pm1 - Prescription Opioid Use pm1 Signatures: Dispatcher [employer] EDMS Blaise Chaudhary MD MD kdr Elo Lisa RN RN iw Sukhwinder Maxwell, [facility] UNDERWRITER pm1 Polo Curry ab2
--- NOTE | 2021-02-28 12:11 | ER ---
Nurse's Notes [facility] Name: Sherman Cook Age: 75 yrs Sex: Female : 1945 Arrival Date: 02/28/2021 Time: 10:02 Bed 25 Private MD: Diagnosis: Epistaxis Presentation: 02/28 10:09 Chief complaint: Patient states: nose bleeding started Monday; was here and had rhino iw rocket placed; went home... bent over this am to get something off the floor and it started bleeding again. Coronavirus screen: Vaccine status: Patient reports receiving the 2nd dose of the covid vaccine. Client denies travel out of the [place] in the last 14 days. Ebola Screen: Patient negative for fever greater than or equal to 101.5 degrees Fahrenheit, and additional compatible Ebola Virus Disease symptoms Patient denies exposure to infectious person. Patient denies travel to an Ebola-affected area in the 21 days before illness onset. Initial Sepsis Screen: Does the patient meet any 2 criteria? No. Patient's initial sepsis screen is negative. Does the patient have a suspected source of infection? No. Patient's initial sepsis screen is negative. Risk Assessment: Do you want to hurt yourself or someone else? Patient reports no desire to harm self or others. Onset of symptoms was February 26, 2021. 10:09 Method Of Arrival: Ambulatory iw 10:09 Acuity: TAYE 3 iw Triage Assessment: 10:12 General: Appears in no apparent distress. uncomfortable, well groomed, well developed, iw well nourished, Behavior is calm, cooperative, appropriate for age. Pain: Denies pain. Historical: - Allergies: 10:12 Codeine; iw 10:12 PENICILLINS; iw - PMHx: 10:12 Arthritis; Bronchitis; COPD; Hypertensive disorder; Rheumatoid Arthritis; iw - PSHx: 10:12 lung surgery; iw - Immunization history:: Adult Immunizations up to date. - Social history:: Smoking status: Patient denies any tobacco usage or history of. Patient uses. Screenin:34 Abuse screen: Denies threats or abuse. Denies injuries from another. Nutritional ab2 screening: No deficits noted. Tuberculosis screening: No symptoms or risk factors identified. Fall Risk None identified. Assessment: 10:44 General: Appears uncomfortable, Behavior is calm, cooperative, appropriate for age. ab2 Pain: Complains of pain in nose Pain currently is 7 out of 10 on a pain scale. Neuro: No deficits noted. Level of Consciousness is awake, alert, obeys commands, Oriented to person, place, time, situation, Appropriate for age Steel Inspector are weak bilaterally Gait is steady, Speech is normal, Facial symmetry appears normal, Reports dizziness. Cardiovascular: No deficits noted. Denies chest pain, shortness of breath, Patient's skin is warm and dry. Respiratory: Airway is patent Breath sounds are clear bilaterally. GI: No deficits noted. No signs and/or symptoms were reported involving the gastrointestinal system. : No deficits noted. No signs and/or symptoms were reported regarding the genitourinary system. EENT: Reports Bloody nose with nasal rocket that was placed 2 days ago. Derm: No deficits noted. No signs and/or symptoms reported regarding the dermatologic system. Musculoskeletal: No deficits noted. No signs and/or symptoms reported regarding the musculoskeletal system. 12:27 Reassessment: Sat patient up and right nostril began bleeding. ab2 13:11 Reassessment: Patient states symptoms have improved. ab2 Vital Signs: 10:09 BP 121 / 64; Pulse 116; Resp 16; Temp 98.7; Pulse Ox 100% ; Weight 62.6 kg; Height 5 iw ft. 2 in. (157.48 cm); Pain 0/10; 10:40 BP 65 / 33; Pulse 80; Resp 16; Pulse Ox 100% on R/A; ab2 10:48 BP 87 / 48; Pulse 74; Resp 16; Pulse Ox 97% on R/A; ab2 10:49 BP 103 / 55; Pulse 70; Resp 16; Pulse Ox 100% on R/A; ab2 12:05 BP 119 / 61; Pulse 74; Resp 16; Pulse Ox 100% on R/A; Pain 2/10; ab2 10:09 Body Mass Index 25.24 (62.60 kg, 157.48 cm) iw ED Course: 10:02 Patient arrived in ED. ds1 10:12 Triage completed. iw 10:12 Arm band placed on right wrist. iw 10:17 Polo Curry is Primary Nurse. ab2 10:19 Sukhwinder Maxwell NP is PHCP. pm1 10:19 Blaise Chaudhary MD is Attending Physician. pm1 10:44 Inserted saline lock: 18 gauge in left antecubital area, using aseptic technique. Blood ab2 collected. 10:46 No provider procedures requiring assistance completed. Assist provider with nosebleed ab2 control using Afrin sprays, nasal clamp. 10:47 Patient has correct armband on for positive identification. Bed in low position. Call ab2 light in reach. Side rails up X2. Adult w/ patient. 10:52 Basic Metabolic Panel Sent. ab2 10:52 CBC with Diff Sent. ab2 10:52 LFT's Sent. ab2 10:52 Magnesium Sent. ab2 10:52 NT PRO-BNP Sent. ab2 10:52 Troponin HS Sent. ab2 10:52 PT-INR Sent. ab2 11:24 XRAY Chest (1 view) In Process Unspecified. EDMS 12:10 Ariane Rico MD is Referral Physician. pm1 13:13 IV discontinued, intact, bleeding controlled, No redness/swelling at site. Pressure ab2 dressing applied. Administered Medications: 10:28 Drug: Neal-Synephrine (phenylephrine) [place] 0.5 % 1 sprays Route: Intranasal; Site: both ab2 nares; 12:42 Follow up: Response: No adverse reaction ab2 10:40 Drug: NS 0.9% 1000 ml Route: IV; Rate: 1000 ml; Site: left antecubital; ab2 12:42 Follow up: Response: No adverse reaction; IV Status: Completed infusion ab2 Outcome: 12:10 Discharge ordered by MD. pm1 13:13 Discharged to home ambulatory. ab2 13:13 Condition: improved 13:13 Discharge instructions given to patient, family, Instructed on discharge instructions, follow up and referral plans. medication usage, Demonstrated understanding of instructions, follow-up care, medications. 13:14 Patient left the ED. ab2 Signatures: Dispatcher [employer] [facility] Berenice Bradley ds1 Elo Lisa RN RN Sukhwinder De León NP DIRECTOR OF CORPORATE SPONSORSHIPS pm1 Polo Curry ab2
[2021-02-28 13:37] VITALS: TEMP 98.7
[2021-02-28 13:43] VITALS: O2SAT 100
[2021-02-28 13:44] VITALS: BP 119/61
--- NOTE | 2021-03-03 07:34 | EKG ---
Test Date: 2021-02-28 Test Time: 11:02:59 Trust Officer: MEASUREMENT RESULTS: Intervals: Rate: 69 MS: 130 QRSD: 76 QT: 432 QTc: 462 [place]: P: 65 MS: 130 QRS: 44 T: 212 INTERPRETIVE STATEMENTS: Normal sinus rhythm T wave abnormality, consider inferolateral ischemia Abnormal ECG Compared to ECG 02/26/2021 16:02:58 No significant changes Electronically Signed On 03-03-21 07:27:01 PELT SALTER by Héctor Betancourt
== END 2021-02-28 13:14 | disposition home or self-care (01) ==
LOC: ER 10:02
DX: R04.0 Epistaxis (principal); Z88.0 Allergy status to penicillin; Z88.6 Allergy status to analgesic agent
CPT/HCPCS: 96361; 93005; 85025; 80048; 36415; 83735; 85610; 80076; 84484; 83880; 71045; 96360; 99284; J7030

== ENCOUNTER 2021-06-26 18:56 | Inpatient (IN) | payer OTHER ==
--- OUTSIDE RECORDS SUMMARY | 2021-06-26 18:58 | XMS REPORT | Continuity of Care Document ---
:1945 Author Organization [facility] t Address [address] [place] [address] Care Team Providers Name Role Phone ASHA [...] Type Policy Number Effective Date Expiration Date [facility] [id number] 2020 [facility] 00:00:00 PPO Problems This patient has no known problems. Allergies, Adverse Reactions, Alerts Allergy Allergy Status Severity Reaction(s) Onset Inactive Treating Comm ents Source Name Type Date Date Clinician NO KNOWN Drug Active Univers ALLERGIE Class ity of [facility] Social History Social Habit Start Date Stop Date Quantity Comments Source Exposure to Not sure [facility] SARS-CoV-2 (event) Medica l Branch Sex Assigned At [birth year] [facility] 00:00:00 00:00:00 Medical Branch Smoking Status Start Date Stop Date Source Unknown if ever smoked [facility] Medications This patient has no known medications. Immunizations Ordered Filled Immunization Date Status Comments Sour e Immunization Name Name SARS-COV-2 COVID-19 2020-12-09 Completed Unive rsity of MODERNA BOOSTER 00:00:00 [facility] ical VACCINE Branch SARS-COV-2 COVID-19 2020-04-18 Completed Unive rsity of MODERNA VACCINE 00:00:00 [facility] Branch SARS-COV-2 COVID-19 2020-04-18 Completed Unive rsity of MODERNA VACCINE 00:00:00 [facility] Branch SARS-COV-2 COVID-19 2020-03-21 Completed Unive rsity of MODERNA VACCINE 00:00:00 [facility] Branch SARS-COV-2 COVID-19 2020-03-21 Completed Unive rsity of MODERNA VACCINE 00:00:00 [facility] Procedures Procedure Date / Time Performed Performing Clinician Sourc e SARS-COV-2 COVID-19 2020-12-09 15:58:44 Doctor Unassigned, No [facility] [place] VACCINE Name Medical Branch BOOSTER,0.25ML,IM (MODERNA) XR HIPS 3 VW 2020-05-22 15:32:42 [facility] Encounters Start End Encounter Admission Attending Care Care Encounter Source Date/Time Date/Time Type Type Clinicians Facility Department ID 2021-03-10 Outpatient STLMLC [facility] [id number] Common 14:15:20 [id number] [facility] - [facility] 2020-12-09 2020-12-09 Outpatient Jacob COLLIER [facility] [id number] Univers 11:00:00 10:57:42 CARLO zayas [facility] 2020-12-09 2020-12-09 Imm/Inj Nurse, Adc Pob Immunization [facility] [id number] Univers 10:57:25 10:57:42 Visit Carlo Collier [id number] .10 chana [facility] [id number] Rudolph Kinney [id number] Ia dical nal [address] Branch [facility] 2020-09-04 2020-09-04 Outpatient [facility] [id number] [place] 00:00:00 00:00:[address] 2020-07-21 2020-07-23 Inpatient [facility] [id number] [place] 00:00:00 00:00:00 EDFAREED [address] 2020-07-16 2020-07-16 [facility] [id number] [place] 00:00:00 00:00:00 EDWARD [address] 2020-07-09 2020-07-09 Outpatient ACEVEDO, [facility] [id number] [place] 00:00:00 00:00:00 EDWARD [address] 2020-07-06 2020-07-06 Outpatient ACEVEDO, [facility] [id number] [place] 00:00:00 00:00:00 EDWARD [address] 2020-07-06 2020-07-06 Outpatient ACEVEDO, [facility] [id number] [place] 00:00:00 00:00:00 EDWARD [address] 2020-07-06 2020-07-06 Outpatient ACEVEDO, [facility] [id number] [place] 00:00:00 00:00:00 EDWARD [address] 2020-07-06 2020-07-06 Outpatient ACEVEDO, [facility] [id number] [place] 00:00:00 00:00:00 EDWARD [address] 2020-07-02 2020-07-02 Outpatient ACEVEDO, [facility] [id number] [place] 00:00:00 00:00:00 EDWARD [address] 2020-07-02 2020-07-02 Outpatient ACEVEDO, [facility] [id number] [place] 00:00:00 00:00:00 EDWARD [address] 2020-05-22 2020-05-22 Hospital Radiology [facility] [id number] 09:45:00 23:59:00 Encounter Gregory [id number] [place] [id number] [place] [id number] 2020-05-22 2020-05-22 Hospital Radiology [facility] [id number] [facility] 09:45:00 23:59:00 Encounter Gregory [id number] [facility] [id number] [place] [address] [id number] [place] [id number] Branch 2020-05-22 2020-05-22 Outpatient R RADIOLOGY [facility] [id number] Univers 00:00:00 00:00:00 ity of [facility] 2020-03-21 2020-03-21 Outpatient O JIE, [facility] [id number] [facility] 13:20:00 13:20:00 KADEEM [facility] Results Test Description Test Time Test Comments Results Result Comments Source SARS-CoV-2 (COVID-19) RNA [Presence] in Respiratory sp ecimen by 2020-07-16 15:39:04 JIGNA with probe detection Test Item Value Reference Range Interpretation Comme nts SARS-CoV-2 (COVID-19) RNA [Presence] in Respiratory Not detected No t-Detected specimen by JIGNA with probe detection (test code = 86687-4) Whether patient is employed in a healthcare setting (test code = 29268-3) Whether the patient has symptoms related to condition of interest (test code = 27185-0) Patient was hospitalized because of this condition (test code = 22388-3) Whether the patient was admitted to intensive care unit (ICU) for condition of interest (test code = 59255-7) Whether patient resides in a congregate care setting (test code = 99007-4) SARS-CoV-2 (COVID-19) RNA [Presence] in Respiratory specimen by JIGNA with probe [id number] 17:08:57 Test Item Value Reference Range Interpretation Comments SARS-CoV-2 (COVID-19) RNA Not detected Not-Detected [Presence] in Respiratory specimen by JIGNA with probe detection (test code = 57711-4) Whether patient is employed in a healthcare setting (test code = 57806-2) Whether the patient has symptoms related to condition of interest (test code = 20966-9) Patient was hospitalized because of this condition (test code = 16967-8) Whether the patient was admitted to intensive care unit (ICU) for condition of interest (test code = 34771-4) Whether patient resides in a congregate care setting (test code = 66937-5) XR HIPS 3 VW [id number] 20:46:16Impression: No evidence of acute fracture or dislocation. 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 ELECTRONICALLY SIGNED: ?Genaro Akbar MDBoard- Certified, [place] Board of RadiologyCAQ in NeuroradiologyTexas Radiology Associates, [email or web address] Patient: ALICIA Whitfield Date: 05/22/2020 10:00 AM : 1945MRN: [id number] Number: [id number] RL: [id number] TRA After Hours: [id number]-GHL-[id number] ([phone]) Clinical indication: Bilateral hip pain. Ordering Physician: [...] is no radiopaque soft tissue foreign body. [facility], Radiant Results Inft User - 05/22/2020 3:47 PM CDTClinical indication: Bilateral hip pain.Ordering Physician: KENDALL DANIELechnique:A frontal view of the pelvis and frontal [...] pronounced onthe left.ELECTRONICALLY SIGNED: Genaro Akbar MDBoard-Certified, [place] Board of RadiologyCAQ in NeuroradiologyTexas Radiology Associates, [email or web address]: ALICIA Nahid Date: 05/22/2020 10:00 AM : 1945MRN: [id number] Number: [id number]: [id number] After Hours: [id number]-[id number]-RAD ([phone]) [facility]
[2021-06-26] MEDS ORDERED: IPRATROPIUM BROM 0.5MG/2.5ML ONE (19:36)
[2021-06-26] MEDS ORDERED: ALBUTEROL 2.5 MG/3 ML NEB SOL ONE (19:36)
[2021-06-26 20:15] LABS: Absolute Lymphocytes (CBC) 2.1 K/uL (0.7-4.9); Hematocrit 40.2 % (36.0-45.0); Lymphocytes % 23.5 % (15.3-44.8); MPV 8.5 fL (7.6-11.3)
[2021-06-26 20:26] LABS: Protime INR 0.94
[2021-06-26] MEDS ORDERED: METHYLPREDNISOLONE 125 MG INJ ONE (20:26)
[2021-06-26 20:29] LABS: Albumin 3.5 g/dL (3.4-5.0); Bilirubin Total 0.2 mg/dL (0.2-1.0); Potassium 3.7 mmol/L (3.5-5.1); Protein, Total 7.3 g/dL (6.4-8.2); Troponin High Sensitivity 11.7 pg/mL (<58.9)
--- NOTE | 2021-06-26 20:36 | RAD REPORT ---
EXAM DESCRIPTION: RAD - Chest Single View - 06/26/2021 8:23 pm CLINICAL HISTORY: SOB COMPARISON: Chest Single View dated 02/28/2021; Chest Single View dated 02/26/2021; Chest Single View dated 08/12/2020; Chest Single View dated 03/18/2019 FINDINGS: Lines: None. Lungs: No evidence of edema or pneumonia. Pleural: No significant pleural effusions or pneumothorax. Cardiac: The heart size is within normal limits. Bones: No acute fractures. Other: IMPRESSION: No acute cardiopulmonary disease.
--- NOTE | 2021-06-26 20:45 | EDPHYS ---
Physician Documentation [facility] Name: Sherman Cook Age: 76 yrs Sex: Female : 1945 Arrival Date: 06/26/2021 Time: 18:57 Bed 4 Private MD: Aquiles Gracia V ED Physician Mickey Brown HPI: 06/26 19:56 This 76 yrs old Female presents to ER via Wheelchair with complaints of Breathing ms3 Difficulty. 19:56 The patient has shortness of breath at rest. Onset: The symptoms/episode began/occurred ms3 5 day(s) ago. Duration: The symptoms are continuous, and are unchanged since they started. The patient's shortness of breath has no apparent modifying factors. Associated signs and symptoms: Pertinent positives: fever. Severity of symptoms: At their worst the symptoms were moderate. Historical: - Allergies: 19:15 Codeine; vc1 19:15 PENICILLINS; vc1 - PMHx: 19:15 Arthritis; Bronchitis; COPD; Hypertensive disorder; Rheumatoid Arthritis; vc1 - PSHx: 19:15 lung surgery; vc1 - Immunization history:: Adult Immunizations up to date, Client reports receiving the 2nd dose of the Covid vaccine, Flu vaccine is up to date. - Social history:: Smoking status: Patient denies any tobacco usage or history of. ROS: 19:56 Constitutional: Negative for fever, and chills. Cardiovascular: Negative for chest ms3 pain, and palpitations. Abdomen/GI: Negative for abdominal pain, nausea, vomiting, diarrhea, and constipation, Back: Negative for injury and pain, Skin: Negative for injury, rash, and discoloration, Psych: Negative for depression, anxiety, suicide ideation, homicidal ideation, and hallucinations. 19:56 Respiratory: Positive for shortness of breath, wheezing. 19:56 All other systems are negative. Exam: 19:56 Constitutional: This is a well developed, well nourished patient who is awake, alert, ms3 and in no acute distress. Head/Face: Normocephalic, atraumatic. Chest/axilla: Normal chest wall appearance and motion. Nontender with no deformity. Cardiovascular: Regular rate and rhythm with a normal S1 and S2. No gallops, murmurs, or rubs. Normal PMI, no JVD. No pulse deficits. Abdomen/GI: Soft, non-tender, with normal bowel sounds. No distension or tympany. No guarding or rebound. No evidence of tenderness throughout. Skin: Warm, dry with normal turgor. Normal color with no rashes, no lesions, and no evidence of cellulitis. Psych: Awake, alert, with orientation to person, place and time. Behavior, mood, and affect are within normal limits. 19:56 Respiratory: moderate respiratory distress is noted, Respirations: normal, Breath sounds: wheezing: expiratory that is mild, is heard diffusely. Vital Signs: 19:01 BP 160 / 113; Pulse 117; Resp 26; Temp 97.4; Pulse Ox 88% on R/A; Weight 62.6 kg; vc1 Height 5 ft. 2 in. (157.48 cm); Pain 0/10; 23:08 BP 154 / 85; Pulse 115; Resp 22; Pulse Ox 93% on BiPAP; jb4 06/27 01:00 BP 163 / 81; Pulse 91; Resp 18; Pulse Ox 96% on 35% BiPAP; jb4 06/26 19:01 Body Mass Index 25.24 (62.60 kg, 157.48 cm) vc1 MDM: 06/26 19:11 Patient medically screened. ms3 20:41 ED course: Patient improved on bipap at this time. With hx of fever will give emperic ms3 abx. Will admit to Dr Gracia.. 20:43 ED course: Discussed case with Dr Gracia. He accepts patient as admission. Agrees with ms3 Azithromycin.. 23:25 Differential diagnosis: CHF exacerbation, Chronic Obstructive Pulmonary Disease ms3 pulmonary edema, reactive airway disease. Data reviewed: vital signs, nurses notes, lab test result(s), EKG, radiologic studies. Data interpreted: member certification manager: rate is 115 beats/min, rhythm is sinus tachycardia, with no ectopy, Interpretation: normal rhythm, tachycardia. Test interpretation: by ED physician or midlevel provider: ECG. Counseling: I had a detailed discussion with the patient and/or guardian regarding: the historical points, exam findings, and any diagnostic results supporting the discharge/admit diagnosis, lab results, radiology results, the need for further work-up and treatment in the hospital. 06/26 19:26 Order name: Blood Culture Adult (2) ms3 06/26 19:26 Order name: CBC with Diff; Complete Time: 20:38 ms3 06/26 19:26 Order name: CMP; Complete Time: 20:38 ms3 06/26 19:26 Order name: Lactate; Complete Time: 20:38 ms3 06/26 19:26 Order name: Protime (+inr); Complete Time: 20:38 ms3 06/26 19:26 Order name: Ptt, Activated; Complete Time: 20:38 ms3 06/26 19:26 Order name: Troponin HS; Complete Time: 20:38 ms3 06/26 20:23 Order name: Glucose, Ancillary Testing; Complete Time: 20:38 EDMS 06/26 20:46 Order name: COVID-19 SARS RT PCR (Document "Date of Onset" if Symptomatic) tw5 06/26 20:52 Order name: Basic Metabolic Panel EDMS 06/26 20:52 Order name: Basic Metabolic Panel EDMS 06/26 20:52 Order name: CBC with Automated Diff EDMS 06/26 20:52 Order name: CBC with Automated Diff EDMS 06/26 20:52 Order name: NT PRO-BNP EDMS 06/26 19:26 Order name: Chest Single View XRAY; Complete Time: 20:38 ms3 06/26 19:26 Order name: Accucheck; Complete Time: 20:15 ms3 06/26 19:26 Order name: Cardiac monitoring; Complete Time: 19:33 ms3 06/26 19:26 Order name: EKG - Nurse/Tech; Complete Time: 19:59 ms3 06/26 19:26 Order name: IV Saline Lock - Large Bore; Complete Time: 20:15 ms3 06/26 19:26 Order name: Labs collected and sent; Complete Time: 20:15 ms3 06/26 19:26 Order name: O2 Per Protocol; Complete Time: 19:33 ms3 06/26 19:26 Order name: O2 Sat Monitoring; Complete Time: 19:33 ms3 06/26 20:52 Order name: Heart Healthy EDMS 06/26 20:52 Order name: NT PRO-BNP EDMS 06/26 22:50 Order name: BIPAP tw5 Administered Medications: 20:36 Drug: SOLU-Medrol (methylPrednisoLONE) 125 mg Route: IVP; Site: left antecubital; jb4 06/27 01:21 Not Given (Other Intervention Used): SOLU-Medrol (methylPREDNISolone sodium succinate) jb4 125 mg IM once Disposition: 06/26 23:25 Critical Care:. ms3 Disposition Summary: 06/26/21 20:44 Hospitalization Ordered Hospitalization Status: Inpatient Admission ms3 Provider: Aquiles Gracia ms3 Location: Telemetry/MedSur (Inpatient) ms3 Condition: Stable ms3 Problem: new ms3 Symptoms: have improved ms3 Bed/Room Type: Standard ms3 Room Assignment: 207(06/27/21 01:08) cg Diagnosis - Respiratory failure, unspecified with hypoxia ms3 - COPD/ Chronic obstructive pulmonary disease with (acute) exacerbation ms3 Forms: - Medication Reconciliation Form ms3 - SBAR form ms3 Critical care time excluding procedures: 23:25 Critical care time: Bedside Care: 35 minutes, Consultation: 10 minutes. Total time: 45 ms3 minutes Signatures: Dispatcher [employer] Alexandria Ray RN RN cg Gama Cloud RN RN jb4 Mickey Brown DO DO ms3 Gladis Cadet RN RN vc1 Corrections: (The following items were deleted from the chart) 06/27 01:08 06/26 20:44 ms3 cg
--- NOTE | 2021-06-26 20:45 | ER ---
Nurse's Notes [facility] Name: Sherman Cook Age: 76 yrs Sex: Female : 1945 Arrival Date: 06/26/2021 Time: 18:57 Bed 4 Private MD: Aquiles Gracia V Diagnosis: Respiratory failure, unspecified with hypoxia;COPD/ Chronic obstructive pulmonary disease with (acute) exacerbation Presentation: 06/26 19:01 Chief complaint: Spouse and/or significant other states: "She went out of town for 7 vc1 days when she got home she was sick and now she can't breathe very good. When I checked her oxygen it was 88%". Coronavirus screen: Vaccine status: Patient reports receiving the 2nd dose of the covid vaccine. Booster, Moderna. Ebola Screen: No symptoms or risks identified at this time. Initial Sepsis Screen: Does the patient meet any 2 criteria? RR > 20 per min. HR > 90 bpm. No. Patient's initial sepsis screen is negative. Does the patient have a suspected source of infection? Yes: Productive cough/pneumonia. Risk Assessment: Do you want to hurt yourself or someone else? Patient reports no desire to harm self or others. Onset of symptoms was June 25, 2021. 19:01 Method Of Arrival: Wheelchair vc1 19:01 Acuity: TAYE 2 vc1 Triage Assessment: 19:15 General: Appears distressed, uncomfortable, Behavior is anxious. Pain: Denies pain. vc1 Neuro: Level of Consciousness is awake, alert, obeys commands, Oriented to person, place, time, situation, Appropriate for age. Cardiovascular: Reports Chest tightness Denies chest pain. Respiratory: Reports shortness of breath at rest cough that is labored breathing Airway is patent Respiratory effort is labored, shallow, Respiratory pattern is regular, tachypnea Onset: The symptoms/episode began/occurred gradually, the patient has severe shortness of breath. GI: No deficits noted. : No deficits noted. Derm: No deficits noted. Musculoskeletal: No deficits noted. Historical: - Allergies: 19:15 Codeine; vc1 19:15 PENICILLINS; vc1 - PMHx: 19:15 Arthritis; Bronchitis; COPD; Hypertensive disorder; Rheumatoid Arthritis; vc1 - PSHx: 19:15 lung surgery; vc1 - Immunization history:: Adult Immunizations up to date, Client reports receiving the 2nd dose of the Covid vaccine, Flu vaccine is up to date. - Social history:: Smoking status: Patient denies any tobacco usage or history of. Screenin:14 Abuse screen: Denies threats or abuse. Nutritional screening: No deficits noted. ll3 Tuberculosis screening: No symptoms or risk factors identified. Assessment: 19:14 General: Appears uncomfortable, Behavior is calm, cooperative. Pain: Complains of pain ll3 in chest Quality of pain is described as Tightness. Neuro: Level of Consciousness is awake, alert, obeys commands, Oriented to person, place, time, situation. Cardiovascular: Patient's skin is warm and dry. Rhythm is sinus tachycardia. Respiratory: Reports shortness of breath cough that is Airway is patent Respiratory effort is labored, Respiratory pattern is hyperventilation Breath sounds with wheezes bilaterally. Onset: The symptoms/episode began/occurred Monday. Derm: Skin is pink, warm \\T\\ dry. 23:08 Reassessment: Patient appears in no apparent distress at this time. Patient and/or 4 family updated on plan of care and expected duration. Pain level reassessed. Pt remains on bi-pap. Respirations are more relaxed, tachypneic, unlabored. Is resting in bed with eyes closed, with family at the bedside. 06/27 00:00 Reassessment: Patient appears in no apparent distress at this time. No changes from [facility] previously documented assessment. Patient and/or family updated on plan of care and expected duration. Pain level reassessed. 01:00 Reassessment: Patient appears in no apparent distress at this time. No changes from [facility] previously documented assessment. Patient and/or family updated on plan of care and expected duration. Pain level reassessed. Vital Signs: 06/26 19:01 BP 160 / 113; Pulse 117; Resp 26; Temp 97.4; Pulse Ox 88% on R/A; Weight 62.6 kg; vc1 Height 5 ft. 2 in. (157.48 cm); Pain 0/10; 23:08 BP 154 / 85; Pulse 115; Resp 22; Pulse Ox 93% on BiPAP; 4 06/27 01:00 BP 163 / 81; Pulse 91; Resp 18; Pulse Ox 96% on 35% BiPAP; 06/26 19:01 Body Mass Index 25.24 (62.60 kg, 157.48 cm) vc1 ED Course: 06/26 18:57 Patient arrived in ED. am2 18:57 Aquiles Gracia MD is Private Physician. am2 19:01 Ayala Vera MD is Attending Physician. ma2 19:01 Arm band placed on left wrist. vc1 19:04 Triage completed. vc1 19:05 Mickey Brown DO is Attending Physician. ms3 19:14 Patient has correct armband on for positive identification. Bed in low position. Call ll3 light in reach. Side rails up X 1. 19:42 Gama Cloud, RN is Primary Nurse. jb4 19:59 Client placed on continuous cardiac and pulse oximetry monitoring. NIBP monitoring wm applied. 19:59 EKG done, by ED staff. wm 20:25 Chest Single View XRAY In Process Unspecified. EDMS 20:44 Aquiles Gracia MD is Hospitalizing Provider. ms3 22:03 COVID-19 SARS RT PCR (Document "Date of Onset" if Symptomatic) Sent. ds4 Administered Medications: 20:36 Drug: SOLU-Medrol (methylPrednisoLONE) 125 mg Route: IVP; Site: left antecubital; jb4 06/27 01:21 Not Given (Other Intervention Used): SOLU-Medrol (methylPREDNISolone sodium succinate) jb4 125 mg IM once Outcome: 06/26 20:44 Decision to Hospitalize by Provider. ms3 06/27 01:39 Patient left the ED. tw5 Signatures: Dispatcher [employer] EDMS Alexandru Lao ds4 Gama Cloud RN RN jb4 Disha Alvarado am2 Ayala Vera MD MD maMickey Little DO DO ms3 JuarezDagoPretty Lyman tw5 Derrick Horn RN RN 3 Gladis Cadet RN RN vc1 Corrections: (The following items were deleted from the chart) 06/26 19:15 19:01 BP 160 / 113; Pulse 117bpm; Pulse Ox 92%; Temp 97.4F; 62.6 kg; Height 5 ft. 2 vc1 in.; BMI: 25.2; Pain 0/10; vc1 06/27 01:21 06/26 20:36 SOLU-Medrol (methylPREDNISolone sodium succinate) 125 mg IM in left deltoid jb4 jb4
[2021-06-26] MEDS ORDERED: ACETAMINOPHEN 500 MG TAB PO PRN (20:48)
[2021-06-26] MEDS ORDERED: ONDANSETRON 4 MG/2 ML VIAL IV PRN (20:48)
[2021-06-27] MEDS: METHYLPREDNISOLONE 40 MG INJ IV SCH ×3 (02:19→16:01)
[2021-06-27] MEDS: ALBUTEROL 2.5 MG/3 ML NEB SOL NEB PRN ×2 (02:25→20:40)
[2021-06-27] MEDS: IPRATROPIUM BROM 0.5MG/2.5ML NEB PRN ×2 (02:25→20:40)
[2021-06-27 09:41] LABS: Absolute Lymphocytes (CBC) 0.7 K/uL (0.7-4.9); Hematocrit 38.7 % (36.0-45.0); MPV 9.3 fL (7.6-11.3); RBC Red Blood Cell Count 4.44 M/uL (3.86-4.86)
--- NOTE | 2021-06-27 10:05 | P.HP ---
Certification for Inpatient Patient admitted to: Inpatient With expected LOS: >2 Midnights Practitioner: I am a practitioner with admitting privileges, knowledge of patient current condition, hospital course, and medical plan of care. Services: Services provided to patient in accordance with Admission requirements found in Title 42 Section 412.3 of the Code of Federal Regulations Patient History Date of Service: 06/27/21 Reason for admission: DYSPNEA, COUGH History of Present Illness: ALICIA IS A COPD PATIENT WHO HAS DONE VERY WELL ON TRELEGY BUT THIS TIME FAILED TO IMPROVE ON Z JIE, STEROIDS ORALLY AND NEBS AT HOME. SHE IS HERE FOR COUGH AND DYSPNEA FOR ABOUT 10 DAYS Allergies Penicillins Allergy (Mild, Verified 06/27/21 01:57) Shortness of breath codeine [Codeine] Adverse Reaction (Intermediate, Verified 01/16/12 12:32) vomitting Home medications list reviewed: Yes Home Medications: Cyclosporine [Restasis] 1 each OP DAILY 09/07/15 Duloxetine HCl [Cymbalta] 60 mg PO DAILY 09/07/15 Fluticasone/Umeclidin/Vilanter [Trelegy Ellipta 100-62.5-25] 1 puff IH DAILY 03/18/19 Secukinumab [Cosentyx Syringe] 150 mg SQ SEECOM 06/27/21 - Past Medical/Surgical History Has patient received pneumonia vaccine in the past: Yes Diabetic: No -: PNEUMONIA -: BRONCHITIS -: COPD -: RA -: CATARACT SX BILATERAL EYES - Family History Father -: Lung disease Mother -: Lung disease - Social History Smoking Status: Former smoker Alcohol use: Yes CD- Drugs: No Caffeine use: Yes Place of Residence: Home Review of Systems 10-point ROS is otherwise unremarkable General: Weakness Respiratory: Cough, Shortness of Breath Physical Examination - Vital Signs Temperature: 95.2 F Blood Pressure: 138/62 Pulse: 85 Respirations: 20 Pulse Ox (%): 98 - Physical Exam General: Oriented x3, Mild distress, Moderate distress HEENT: Atraumatic, PERRLA, Mucous membr. moist/pink, EOMI, Sclerae nonicteric Neck: Supple, 2+ carotid pulse no bruit, No LAD, Without JVD or thyroid abnormality Respiratory: Diminished Cardiovascular: Regular rate/rhythm, Normal S1 S2 Gastrointestinal: Normal bowel sounds, No tenderness Musculoskeletal: No tenderness Integumentary: No rashes Neurological: Normal gait, Normal speech, Normal strength at 5/5 x4 extr, Normal tone, Normal affect Lymphatics: No axilla or inguinal lymphadenopathy - Studies Laboratory Data (last 24 hrs) 06/26/21 19:55: PT 10.3, INR 0.94, APTT 33.7 06/26/21 19:55: Sodium 141, Potassium 3.7, BUN 17, Creatinine 0.96, Glucose 120 H, Total Bilirubin 0.2, AST 25, ALT 29, Alkaline Phosphatase 107 06/26/21 19:55: WBC 9.0, Hgb 13.4, Hct 40.2, Plt Count 198 Assessment and Plan - Problems (Diagnosis) (1) Decompensated chronic obstructive pulmonary disease with exacerbation Onset Date: 09/08/15 Current Visit: No Status: Acute Plan: IV STEROIDS LEVAQUIN PO STOP Z JIE NEBS Q6H. - Advance Directives Does patient have a Living Will: No Does patient have a Durable POA for Healthcare: No
[2021-06-27] MEDS: levoFLOXacin 500 MG TAB PO SCH (10:23)
[2021-06-27 11:02] LABS: MPV 8.7 fL (7.6-11.3)
[2021-06-27 11:20] LABS: Blood Morphology Comment NOT SEEN (NOT SEEN); Platelet Estimate ADEQ
[2021-06-28] MEDS: METHYLPREDNISOLONE 40 MG INJ IV SCH ×3 (00:10→16:35)
[2021-06-28] MEDS ORDERED: COSENTYX 150 MG/ML SQ SCH (09:00)
[2021-06-28] MEDS: DULOXETINE HCL 60 MG PO SCH (09:00)
[2021-06-28] MEDS: ALBUTEROL 2.5 MG/3 ML NEB SOL NEB PRN (09:30)
[2021-06-28] MEDS: ENOXAPARIN 40 MG/0.4 ML SQ SCH (09:30)
[2021-06-28] MEDS: IPRATROPIUM BROM 0.5MG/2.5ML NEB PRN (09:30)
[2021-06-28] MEDS: levoFLOXacin 500 MG TAB PO SCH (09:30)
--- NOTE | 2021-06-28 10:06 | EKG ---
Test Date: 2021-06-26 Test Time: 19:46:15 Roofing Supervisor: MEASUREMENT RESULTS: Intervals: Rate: 99 OR: 134 QRSD: 74 QT: 348 QTc: 446 [place]: P: 78 OR: 134 QRS: 67 T: 201 INTERPRETIVE STATEMENTS: Normal sinus rhythm with sinus arrhythmia T wave abnormality, consider inferior ischemia T wave abnormality, consider anterolateral ischemia Abnormal ECG Compared to ECG 02/28/2021 11:02:59 No significant changes Electronically Signed On 06-28-21 10:02:52 CDT by Héctor Betancourt
[2021-06-28] MEDS ORDERED: IPRATROPIUM BROM 0.5MG/2.5ML NEB PRN (14:00)
[2021-06-28] MEDS ORDERED: ALBUTEROL 2.5 MG/3 ML NEB SOL NEB PRN (14:00)
--- NOTE | 2021-06-28 17:51 | P.PN ---
Subjective Date of Service: 06/28/21 Chief Complaint: DYSPNEA, COUGH Subjective: Improving BK IS BETTER, STILL WHEEZING AND WEAK. NO PAIN. Physical Examination - Vital Signs Temperature: 97.9 F Blood Pressure: 135/61 Pulse: 88 Respirations: 18 Pulse Ox (%): 99 - Physical Exam General: Oriented x3, Mild distress HEENT: Atraumatic, PERRLA, EOMI Neck: Supple, JVD not distended Respiratory: Diminished, Expiratory wheezes Cardiovascular: Regular rate/rhythm, Normal S1 S2 Gastrointestinal: Normal bowel sounds, No tenderness Musculoskeletal: No tenderness Integumentary: No rashes Neurological: Normal speech, Normal tone, Normal affect Lymphatics: No axilla or inguinal lymphadenopathy - Studies Medications List Reviewed: Yes Assessment And Plan - Current Problems (Diagnosis) (1) Decompensated chronic obstructive pulmonary disease with exacerbation Onset Date: 09/08/15 Current Visit: No Status: Acute Plan: IV STEROIDS LEVAQUIN PO STOP Z JIE NEBS Q6H. CONTINE LEVAQUIN NEBS ETC. STABLE AND BETTER TODAY.
[2021-06-28 18:38] VITALS: O2SAT 99
[2021-06-29] MEDS: METHYLPREDNISOLONE 40 MG INJ IV SCH ×2 (00:26→08:49)
[2021-06-29 05:29] LABS: Absolute Lymphocytes (CBC) 1.1 K/uL (0.7-4.9); Hematocrit 36.6 % (36.0-45.0); Lymphocytes % 7.5 % (15.3-44.8); MPV 9.1 fL (7.6-11.3); RBC Red Blood Cell Count 4.19 M/uL (3.86-4.86)
[2021-06-29 06:25] VITALS: BMI 24.3
[2021-06-29] MEDS: levoFLOXacin 500 MG TAB PO SCH (08:48)
[2021-06-29] MEDS: ENOXAPARIN 40 MG/0.4 ML SQ SCH (08:49)
[2021-06-29] MEDS: DULOXETINE HCL 60 MG PO SCH (08:49)
[2021-06-29 09:00] VITALS: BP 138/71; TEMP 97.1
[2021-06-29] MEDS ORDERED: LOSARTAN POTASSIUM 50 MG TABLET PO SCH (09:00)
--- NOTE | 2021-06-29 21:53 | P.DS ---
Admission Date: 06/26/21 Discharge Date: 06/29/21 Disposition: ROUTINE DISCHARGE Discharge Condition: FAIR Reason for Admission: DYSPNEA, COUGH - Problems (1) Decompensated chronic obstructive pulmonary disease with exacerbation Onset Date: 09/08/15 Status: Acute Brief History of Present Illness: ALICIA IS A COPD PATIENT WHO HAS DONE VERY WELL ON TRELEGY BUT THIS TIME FAILED TO IMPROVE ON Z JIE, STEROIDS ORALLY AND NEBS AT HOME. SHE IS HERE FOR COUGH AND DYSPNEA FOR ABOUT 10 DAYS Hospital Course: BK IS DOING GREAT AFTER LEVAQUIN, STEROID AND NEBS. SHE HAS STEROIDS AND NEBS AT HOME. SHE WILL CONTINUE LEVAQUIN FOR ABOUT 10 DAYS. SHE HAS DONE WELL ON TRELEGY EXCEPT FOR THIS VISIT. Vital Signs/Physical Exam: Temp Pulse Resp BP Pulse Ox 97.1 F 72 20 138/71 97 06/29/21 08:00 06/29/21 08:00 06/29/21 08:00 06/29/21 08:00 06/29/21 08:00 Laboratory Data at Discharge: WBC 14.8 K/uL (4.3-10.9) H D 06/29/21 05:10 Hgb 12.0 g/dL (12.0-15.0) 06/29/21 05:10 Hct 36.6 % (36.0-45.0) 06/29/21 05:10 Plt Count 207 K/uL (152-406) 06/29/21 05:10 PT 10.3 SECONDS (9.5-12.5) 06/26/21 19:55 INR 0.94 06/26/21 19:55 APTT 33.7 SECONDS (24.3-36.9) 06/26/21 19:55 Sodium 139 mmol/L (136-145) 06/27/21 09:08 Potassium 4.0 mmol/L (3.5-5.1) 06/27/21 09:08 BUN 16 mg/dL (7-18) 06/27/21 09:08 Creatinine 0.82 mg/dL (0.55-1.3) 06/27/21 09:08 Glucose 170 mg/dL (74-106) H 06/27/21 09:08 Total Bilirubin 0.2 mg/dL (0.2-1.0) 06/26/21 19:55 AST 25 U/L (15-37) 06/26/21 19:55 ALT 29 U/L (12-78) 06/26/21 19:55 Alkaline Phosphatase 107 U/L (45-117) 06/26/21 19:55 Home Medications: Cyclosporine [Restasis] 1 each OP DAILY 09/07/15 Duloxetine HCl [Cymbalta] 60 mg PO DAILY 09/07/15 Fluticasone/Umeclidin/Vilanter [Trelegy Ellipta 100-62.5-25] 1 puff IH DAILY 03/18/19 Secukinumab [Cosentyx Syringe] 150 mg SQ SEECOM 06/27/21 Losartan Potassium [Cozaar*] 50 mg PO DAILY #90 tablet 06/29/21 levoFLOXacin [Levaquin*] 500 mg PO DAILY #10 tab 06/29/21 New Medications: Losartan Potassium [Cozaar*] 50 mg PO DAILY #90 tablet levoFLOXacin [Levaquin*] 500 mg PO DAILY #10 tab Followup: Aquiles Gracia MD [Primary Care Provider] - (Call to schedule appointment.)
== END 2021-06-29 09:34 | disposition home or self-care (01) | DRG 190 ==
LOC: ER 18:56 → ERHOLD 20:45 → 2ND 06-27 01:28
PROVIDERS: ADMIT Internal Medicine; ATTEND Internal Medicine
PROC: 5A09357 Assistance with Respiratory Ventilation, Less than 24 Consecutive Hours, Continuous Positive Airway Pressure (ICD-10-PCS; principal; 2021-06-26)
DX: J44.1 Chronic obstructive pulmonary disease with (acute) exacerbation (principal); J96.91 Respiratory failure, unspecified with hypoxia; M06.9 Rheumatoid arthritis, unspecified; I10 Essential (primary) hypertension; Z20.822 Contact with and (suspected) exposure to COVID-19; Z87.891 Personal history of nicotine dependence
CPT/HCPCS: 36415; 71045; 80048; 80053; 82947; 83605; 83880; 84484; 85025; 85049; 85610; 85730; 87040; 93005; 94640; 94660; 94760; 96374; 99284; J1650; J2920; J2930; U0003

== ENCOUNTER 2023-04-07 10:57 | Inpatient (IN) | payer OTHER ==
[2023-04-07 11:33] VITALS: BMI 26.5
[2023-04-07] MEDS ORDERED: ALBUTEROL INHALER 200 PUFF/6.7 GM IH PRN (11:33)
[2023-04-07] MEDS ORDERED: DIPHENHYDRAMINE 25 MG TAB/CAP PO PRN (11:35)
[2023-04-07] MEDS ORDERED: ACETAMINOPHEN 325 MG TABLET PO PRN (11:35)
[2023-04-07] MEDS ORDERED: LOPERAMIDE HCL 2 MG CAPSULE PO PRN (11:36)
[2023-04-07] MEDS ORDERED: POLYETHYL GLY 3350 17 GM/DOSE PO PRN (11:37)
[2023-04-07] MEDS ORDERED: ONDANSETRON 4 MG/2 ML VIAL IV PRN (11:37)
[2023-04-07] MEDS: METHYLPREDNISOLONE 40 MG INJ IV SCH (11:58)
[2023-04-07 12:29] LABS: Protime INR 1.03
[2023-04-07 12:30] LABS: Hematocrit 41.9 % (36.0-45.0); MPV 8.3 fL (7.6-11.3); Platelets 228 thou/uL (152-406); RBC Red Blood Cell Count 4.65 M/uL (3.86-4.86)
[2023-04-07] MEDS: LEVALBUTEROL 1.25 MG/3 ML NEB NEB SCH (12:50)
[2023-04-07] MEDS: IPRATROPIUM BROM 0.5MG/2.5ML NEB SCH (12:50)
[2023-04-07 13:00] LABS: Albumin 3.7 g/dL (3.4-5.0); Bilirubin Direct 0.2 mg/dL (0-0.2); Bilirubin Indirect, Calculated 0.2 mg/dL (0.2-0.8); Bilirubin Total 0.4 mg/dL (0.2-1.0); Phosphorus 2.4 mg/dL (2.5-4.9); Potassium 3.7 mEq/L (3.5-5.1); Protein, Total 7.5 g/dL (6.4-8.2); Thyroid Stimulating Hormone 1.75 uIU/mL (0.358-3.740); Troponin High Sensitivity 13.9 pg/mL (<58.9)
[2023-04-07] MEDS: POTASSIUM CL SA 10 MEQ TAB PO ONE (13:39)
[2023-04-07 14:43] LABS: Urine Bacteria <20 /HPF (<20); Urine Mucus Slight /HPF (None Seen); Urine RBC <5 /HPF (None Seen)
--- NOTE | 2023-04-07 16:48 | RAD REPORT ---
EXAM DESCRIPTION: RAD - Chest Pa And Lat (2 Views) - 04/07/2023 2:36 pm CLINICAL HISTORY: copd exacerbation COMPARISON: Chest Single View dated 06/26/2021; Chest Single View dated 02/28/2021; Chest Single View dated 02/26/2021; Chest Single View dated 08/12/2020 TECHNIQUE: PA and lateral views of the chest were obtained. FINDINGS: The lungs are clear. Heart size is normal and central vasculature is within normal limits. No pleural effusion or pneumothorax seen. No acute bony finding noted. IMPRESSION: No acute cardiopulmonary process.
[2023-04-07] MEDS: DULOXETINE 30 MG CAP PO SCH (20:31)
[2023-04-07] MEDS ORDERED: HOME MED 1 EA UNK (Duloxetine Hcl [Cymbalta] 60 MG Capsule.Dr) PO SCH (21:00)
[2023-04-08 04:10] LABS: Phosphorus 2.7 mg/dL (2.5-4.9); Potassium 4.4 mEq/L (3.5-5.1)
[2023-04-08] MEDS: LEFLUNOMIDE 20 MG PO SCH (09:00)
[2023-04-08] MEDS: HOME MED (Fluticasone/Umeclidin/Vilanter [Trelegy Ellipta 100-62.5-25] Blst.W.Dev IH SCH (09:00)
[2023-04-08] MEDS: LOSARTAN POTASSIUM 50 MG TABLET PO SCH (09:47)
[2023-04-08] MEDS: ENOXAPARIN 40 MG/0.4 ML SQ SCH (09:47)
--- NOTE | 2023-04-08 16:31 | P.PN ---
Subjective Date of Service: 04/08/23 Chief Complaint: SHORT OF BREATH Subjective: No new changes, Improving BK IS BETTER. NO PAIN, STILL DYSPNEA. NO CHEST PAIN. Review of Systems 10-point ROS is otherwise unremarkable General: Weakness Respiratory: Shortness of Breath Physical Examination - Vital Signs Temperature: 97.7 F Blood Pressure: 147/64 Pulse: 95 Respirations: 16 Pulse Ox (%): 94 - Physical Exam General: Oriented x3, Mild distress HEENT: Atraumatic, PERRLA, EOMI Neck: Supple, JVD not distended Respiratory: Diminished, Inspiratory wheezes Cardiovascular: Regular rate/rhythm, Normal S1 S2 Gastrointestinal: Normal bowel sounds, No tenderness Musculoskeletal: No tenderness Integumentary: No rashes Neurological: Normal speech, Normal tone, Normal affect Lymphatics: No axilla or inguinal lymphadenopathy - Studies Laboratory Data (last 24 hrs) 04/08/23 03:16 Sodium 139 Potassium 4.4 D BUN 9 Creatinine 0.77 Glucose 167 H Phosphorus 2.7 Medications List Reviewed: Yes Assessment And Plan - Current Problems (Diagnosis) (1) Decompensated chronic obstructive pulmonary disease with exacerbation Onset Date: 09/08/15 Current Visit: No Status: Acute Plan: COPD IS BETTER WITH STEROIDS AND NEBS. CONT MEDS. PROGNOSIS GUARDED.
[2023-04-09] MEDS: AZITHROMYCIN IV 500 MG in NA CHLORIDE 0.9% 250 ML IVPB SCH (16:14)
--- NOTE | 2023-04-09 21:11 | P.PN ---
Subjective Date of Service: 04/09/23 Chief Complaint: SHORT OF BREATH Subjective: Improving BK IS BETTER. NO PAIN, STILL DYSPNEA. NO CHEST PAIN. LOT BETTER TODAY. HAS NO SPUTUM. Review of Systems 10-point ROS is otherwise unremarkable General: Weakness, Malaise Eyes: As per HPI Physical Examination - Vital Signs Temperature: 97.1 F Blood Pressure: 119/52 Pulse: 79 Respirations: 16 Pulse Ox (%): 100 - Physical Exam General: Oriented x3, Mild distress HEENT: Atraumatic, PERRLA, EOMI Neck: Supple, JVD not distended Respiratory: Diminished, Rhonchi/gurgles Cardiovascular: Regular rate/rhythm, Normal S1 S2 Gastrointestinal: Normal bowel sounds, No tenderness Musculoskeletal: No tenderness Integumentary: No rashes Neurological: Normal speech, Normal tone, Normal affect Lymphatics: No axilla or inguinal lymphadenopathy - Studies Medications List Reviewed: Yes Assessment And Plan - Current Problems (Diagnosis) (1) Decompensated chronic obstructive pulmonary disease with exacerbation Onset Date: 09/08/15 Current Visit: No Status: Acute Plan: COPD IS BETTER WITH STEROIDS AND NEBS. CONT MEDS. PROGNOSIS GUARDED. CONT ZITHROMAX. STEROIDS IV NEBS.
[2023-04-10 06:29] VITALS: BP 113/55; TEMP 96.8
[2023-04-10 11:46] VITALS: O2SAT 95
--- NOTE | 2023-04-10 17:51 | P.DS ---
Admission Date: 04/09/23 Discharge Date: 04/10/23 Disposition: ROUTINE DISCHARGE Discharge Condition: FAIR Reason for Admission: SHORT OF BREATH - Problems (1) Decompensated chronic obstructive pulmonary disease with exacerbation Onset Date: 09/08/15 Status: Acute Hospital Course: BK HAS SEVERE COPD. SHE WAS ABLE TO GET OFF OXYGEN AFTER FEW DAYS OF STEROIDS, NEBS AND ABX. SHE IS STABLE WITH POOR PRGNOSIS. DC HOME AND FU AT OFFICE. Vital Signs/Physical Exam: Temp Pulse Resp BP Pulse Ox 96.8 F 87 17 113/55 L 98 04/10/23 04:00 04/10/23 04:00 04/10/23 04:00 04/10/23 04:00 04/10/23 04:00 Laboratory Data at Discharge: WBC 10.70 thou/uL (4.3-10.9) 04/07/23 12:09 Hgb 14.1 g/dL (12.0-15.0) 04/07/23 12:09 Hct 41.9 % (36.0-45.0) 04/07/23 12:09 Plt Count 228 thou/uL (152-406) 04/07/23 12:09 PT 11.3 SECONDS (9.5-12.5) 04/07/23 12:09 INR 1.03 04/07/23 12:09 APTT 35.0 SECONDS (24.3-36.9) 04/07/23 12:09 Sodium 139 mEq/L (136-145) 04/08/23 03:16 Potassium 4.4 mEq/L (3.5-5.1) D 04/08/23 03:16 BUN 9 mg/dL (7-18) 04/08/23 03:16 Creatinine 0.77 mg/dL (0.55-1.02) 04/08/23 03:16 Glucose 167 mg/dL (74-106) H 04/08/23 03:16 Phosphorus 2.7 mg/dL (2.5-4.9) 04/08/23 03:16 Magnesium 2.0 mg/dL (1.6-2.4) 04/07/23 12:09 Total Bilirubin 0.4 mg/dL (0.2-1.0) 04/07/23 12:09 AST 18 U/L (15-37) 04/07/23 12:09 ALT 24 U/L (13-56) 04/07/23 12:09 Alkaline Phosphatase 106 U/L (45-117) 04/07/23 12:09 Home Medications: Duloxetine HCl [Cymbalta] 60 mg PO BID 09/07/15 Fluticasone/Umeclidin/Vilanter [Trelegy Ellipta 100-62.5-25] 1 puff IH DAILY 03/18/19 Albuterol Inhaler [Ventolin Inhaler*] 2 inh IN Q2HR PRN 04/07/23 Leflunomide 20 mg PO DAILY 04/07/23 Losartan Potassium 50 mg PO DAILY 04/07/23 Azithromycin Tab [Zithromax*] 250 mg PO ZPAK #1 maría elena 04/10/23 predniSONE [Deltasone] 20 mg PO BID #60 tab 04/10/23 New Medications: predniSONE [Deltasone] 20 mg PO BID #60 tab Azithromycin Tab [Zithromax*] 250 mg PO ZPAK #1 maría elena Followup: Aquiles Gracia MD [Primary Care Provider] -
[2023-04-11 02:17] LABS: Vitamin D 1,25-Dihydroxy Total 70 pg/mL (18-72); Vitamin D,1,25-OH2, D2 24 pg/mL
== END 2023-04-10 10:18 | disposition home or self-care (01) | DRG 192 ==
LOC: 2ND 10:57 → OBSVTOIN 04-09 21:11
PROVIDERS: ADMIT Internal Medicine; ATTEND Internal Medicine
DX: J44.1 Chronic obstructive pulmonary disease with (acute) exacerbation (principal); M06.9 Rheumatoid arthritis, unspecified; Z88.5 Allergy status to narcotic agent; Z88.0 Allergy status to penicillin; Z88.8 Allergy status to other drugs, medicaments and biological substances; Z79.52 Long term (current) use of systemic steroids; Z79.899 Other long term (current) drug therapy
CPT/HCPCS: 36415; 71046; 80048; 80076; 81015; 82607; 82652; 83735; 84100; 84443; 84484; 85027; 85379; 85610; 85730; 94640; G0378; G0379; J1650; J2920; J7050; J7614; J7644